=== PATIENT | female | born 1990 | race African-American/Black ===

== ENCOUNTER 2023-08-26 11:56 | Emergency (ER) | payer MEDICAID, SELFPAY ==
--- NOTE | ~2023-08-26 | CT_ITS ---
EXAMINATION: CT CHEST WITH CONTRAST CLINICAL INFORMATION: Large lump left upper back COMPARISON: None available. TECHNIQUE: Multidetector volumetric CT imaging of the chest was obtained after the administration of 65 mL of Omnipaque 350 intravenous contrast without immediate adverse reactions. Axial MIP volume rendering provided. Sagittal and coronal reformatted images were obtained. This CT examination was performed using dose optimization techniques as appropriate, variously including the following: *Automated exposure control *Adjustment of mA and/or kV according to patient size (this includes techniques or standardized protocols for targeted exams where dose is matched to indication/reason for exam; i.e. extremities or head) *Use of iterative reconstruction technique DLP: 2 7 mGy-cm FINDINGS: LUNGS: The lungs are clear with no evidence of inflammation or nodules. MEDIASTINUM: The mediastinum is normal. PLEURA: There is no pleural effusion. No pleural mass or thickening. AXILLA: No lymphadenopathy. UPPER ABDOMEN: Unremarkable OSSEOUS STRUCTURES: Unremarkable. There is a fatty soft tissue mass over the left upper back just deep to the skin. This measures 3 x 7 x 11 cm in length. Superior end of the mass is not fully included in the field. Several thin septations. No solid component or enhancement is seen. Appearance is suggestive of a lipoma. CT/CT chest w IV con IMPRESSION: Large lipoma in the left upper back. Superior margin not included in the [id number]. Multiple thin septations. No solid component or enhancement is seen. If this is painful or enlarging, surgical consultation would be recommended. Fleischner guidelines were followed.
--- NOTE | 2023-08-26 12:04 | ED.GENADULT ---
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 Patient reports that she notice an area of swelling in her upper back. She states this area has worsened and increased in size over the last several weeks. She denies any fevers or chills. Denies any chest pain or shortness of breath. She denies history of similar symptoms in the past. She denies any injury or known insect bites to the area. She denies any medical problems. No night sweats, profound weight gain or weight loss. Denies any abdominal pain, nausea, vomiting or diarrhea. No other complaints or concerns at this time. MD complaint: Back mass Onset (ago): month(s) Radiation: back Pain Consistency: constant Relieving factors: none Exacerbating factors: none Associated symptoms: denies other symptoms Treatments prior to arrival: none Related Data Previous Rx's Medication Instructions Recorded acetaminophen 500 mg tablet 500 mg PO Q4-6H PRN pain #30 tabs 08/26/23 (Tylenol Extra Strength) Allergies Allergy/AdvReac Type Severity Reaction Status Date / Time No Known Allergies Allergy Verified 08/26/23 12:05 Review of Systems Review of Systems: Yes all other systems are reviewed and are negative Constitutional: Constitutional: Reports as per [facility] [place] Past Medical History Attestation statement: The following information was validated with the patient. Social History Social History Advance Directives: No Physical Exam ED Vital Signs: Vital Signs - 24 hr 08/26/23 12:06 08/26/23 13:36 08/26/23 14:39 Temperature 98 F 97.7 F Pulse Rate 80 87 Respiratory Rate 19 20 Blood Pressure 124/82 121/82 122/80 Pulse Oximetry 98 Oxygen Delivery Method Room Air Room Air 08/26/23 18:16 Temperature 97.9 F Pulse Rate 86 Respiratory Rate 18 Blood Pressure 134/84 Pulse Oximetry 100 Oxygen Delivery Method Room Air BMI result Body Mass Index 24.9 Const General: cooperative, comfortable and no acute distress Orientation/consciousness: patient oriented x3 Limitations: no limitations [facility] Head: Yes normal to inspection, Yes normocephalic and Yes atraumatic Ears: hearing grossly normal bilaterally General nose exam: Normal external nose present Face and sinus: Yes normal facial exam Mouth: Normal oral and palatal mucosa present, oropharynx normal and moist mucous membranes Throat: Yes posterior oropharynx normal Eyes General: appearance normal, both eyes and all related structures Eyelids: Yes eyelids normal Conjunctivae: conjunctivae normal Sclerae: sclerae normal Pupils: Equal, round and reactive pupils present EOM: EOMs intact bilaterally Neck Neck: Yes normal visual inspection, Yes full ROM and Yes no lymphadenopathy Lymphatic: no lymphadenopathy noted Chest Chest palpation & inspection: normal inspection of the chest Resp Effort & Inspection: normal respiratory effort and able to speak in complete sentences Auscultation: clear to auscultation bilaterally, no crackles, no rales, no rhonchi and no wheezes Cardio Rate: regular rate Rhythm: regular rhythm Heart sounds: S1 normal heart sound present and S2 normal heart sound present GI Other: Abdomen is soft nontender. Inspection: Yes normal to inspection Skin Other: Left upper back with large, approximately 6 x 12 cm mass, with mild fluctuance, and induration. Nonmobile No surrounding erythema or warmth. General skin exam: no rashes or lesions noted Trauma: no lacerations or abrasions Wounds: no wounds Neuro General: patient oriented x3 and moves all extremities Cranial nerves: Yes Equal, round and reactive pupils present Extrem General: Yes normal to inspection Right upper extremity: normal to inspection Left upper extremity: normal to inspection Right lower extremity: normal to inspection Left lower extremity: normal to inspection Course Course Course Narrative: RME: 33-year-old female with no significant past medical history, Creole & Cuban speaking, complaining of worsening lump to left upper back over the past week. Reports 1 has been present for about 5 months, worsening over the past week with increasing pain. Reports clear drainage. States pain radiates to front Large ? Lipoma noted to left upper back. No erythema/warmth or crepitus Labs, chest CT ordered Full HPI, ROS and PE to be performed by primary ED provider. Reevaluation(s) Reevaluation #1: CT of the chest reveals a large lipoma ([id number]) in the left upper back. Multiple thin septations noted. Due to this enlarging and painful, surgical consult warranted. Discharge patient was surgical referral. Advised to call tomorrow for further evaluation. Patient understands and agrees with plan. Patient discharged on Tylenol and advised to return if any new or worsening symptoms occur. Patient understands and agrees with plan. Patient stable for discharge. Time: 18:39 Medications Administered Discontinued Medications Generic Name Dose Route Start Last Admin Trade Name Kristine PRN Reason Stop Dose Admin Iohexol 100 ml 08/26/23 17:30 08/26/23 17:31 Iohexol 350 Mg/Ml 100 Ml Infus..Btl IV 08/26/23 17:31 65 ml ONCE ONE Administration Medical Decision Making Medical Decision Making MDM Narrative: This is a 33-year-old female, with no known past medical history, presenting to the emergency department for evaluation of large upper back mass times multiple months. Patient reports that over last several months she has noticed increasing size and pain to this mass. No trauma or injury. On arrival, vital signs within normal limits. Patient has large mass measuring 6 x 12 cm, indurated, tender to palpation. Differential diagnoses include lipoma, malignancy, abscess, cellulitis. Given size, and tenderness, concerning for malignancy. Will obtain labs and CTA of the chest for further diagnostic imaging. Differential Diagnosis Differential Diagnoses: The differential diagnosis associated with the presentation includes See above Admission/Observation Consideration of admission/observation: Escalation of care including admission/observation considered Patient would have been admitted to the hospital had her work up had any findings where hospital admission was appropriate and her clinical presentation warranted hospital admission. Lab Data MDM Lab Attestation statement: I reviewed the patient's lab results. No leukocytosis, stable H&H, chemistry within normal limits. 08/26/23 13:46 08/26/23 13:46 Labs: Lab Results 08/26/23 Range/Units 13:46 WBC 5.2 (4.8-10.8) X10*3/uL RBC 4.30 (4.20-5.50) X10*6/uL Hgb 13.2 (12.0-16.0) g/dl Hct 40.5 (37.0-47.0) % MCV 94.2 (80.0-98.0) fL MCH 30.7 (27.0-33.0) pg MCHC 32.6 (31.0-35.0) g/dl RDW 13.6 (11.0-16.0) % Plt Count 151 L (160-400) X10*3/uL MPV 12.2 (9.4-12.3) fL Immature Gran % (Auto) 0.2 (0.0-0.4) % Neut % (Auto) 44.6 L (45-73) % Lymph % (Auto) 46.9 H (20-40) % Dane % (Auto) 7.1 (2-11) % Eos % (Auto) 0.8 (0-4) % Baso % (Auto) 0.4 (0-2) % Lymph # (Auto) 2.4 (1.2-4.9) X10*3/uL Dane # (Auto) 0.4 (0.1-1.2) X10*3/uL Eos # (Auto) 0.0 (0.0-0.4) X10*3/uL Baso # (Auto) 0.0 (0.0-0.2) X10*3/uL Abs Immat Gran (auto) 0.01 (0.00-0.03) X10*3/uL Absolute Neuts (auto) 2.3 (2.0-8.3) x10*3/uL Absolute Nucleated RBC 0.000 (0.0-0.012) X10*3/uL Nucleated RBC % (auto) 0.0 (0.0-0.2) /100WBC ESR 11 (0-20) MM/HR Sodium 138 (135-145) mmol/L Potassium 4.0 (3.3-5.1) mmol/L Chloride 107 (96-108) mmol/L Carbon Dioxide 24 (22-29) mmol/L Anion Gap 11 L (12-20) BUN 8 L (9-16) mg/dL Creatinine 0.60 (0.5-1.4) mg/dL Estim Creat Clear Calc 122.2 Estimated GFR > 60 Random Glucose 81 (60-115) mg/dL Calcium 9.3 (8.4-10.2) mg/dL C-Reactive Protein 0.18 (< or = 0.50) mg/dL Radiology Impression Discussion of test interpretation with radiology: I have reviewed the radiologist's reading. Radiologist Impression: FINDINGS: LUNGS: The lungs are clear with no evidence of inflammation or nodules. MEDIASTINUM: The mediastinum is normal. PLEURA: There is no pleural effusion. No pleural mass or thickening. AXILLA: No lymphadenopathy. UPPER ABDOMEN: Unremarkable OSSEOUS STRUCTURES: Unremarkable. There is a fatty soft tissue mass over the left upper back just deep to the skin. This measures 3 x 7 x 11 cm in length. Superior end of the mass is not fully included in the field. Several thin septations. No solid component or enhancement is seen. Appearance is suggestive of a lipoma. CT/CT chest w IV con IMPRESSION: Large lipoma in the left upper back. Superior margin not included in the [id number]. Multiple thin septations. No solid component or enhancement is seen. If this is painful or enlarging, surgical consultation would be recommended. Fleischner guidelines were followed. Dictated By: Nathalie Underwood MD Discharge Plan Discharge Clinical Impression: Lipoma Patient Disposition: Home, Self-Care Instructions: Lipoma (ED) Additional Instructions: Your imaging today shows a large lipoma. This is a benign tumor. Please call the surgeon tomorrow to have this removed. You may take Tylenol as needed for pain. If any new or worsening symptoms occur including but not limited to chest pain, shortness of breath, please return for re-evaluation. Las im?genes de hoy muestran un lipoma celeste. Carrie es un tumor xiomy. Llame al cirujano ma?west para que le extraigan esto. Puede casimiro Tylenol seg?n sea necesario para el dolor. Si se presenta alg?n s?ntoma nuevo o que empeora, incluidos, entre otros, dolor en el pecho y dificultad para respirar, regrese para julia nueva evaluaci?n. Prescriptions: New acetaminophen [Tylenol Extra Strength] 500 mg tablet 500 mg PO Q4-6H PRN (Reason: pain) Qty: 30 0RF Referrals: [facility] [place] General Surgeons [Provider Group]
[2023-08-26 12:06] VITALS: BP 124/82; PULSE 80; RESP 19; TEMP 36.6; O2SAT 98; BMI 24.9
[2023-08-26 13:36] VITALS: BP 121/82; PULSE 87; RESP 20; TEMP 36.5
[2023-08-26 13:53] LABS: MANUAL DIFF FLAG NO
[2023-08-26 13:57] LABS: Basophils Percent Auto 0.4 % (0-2); Eosinophils Percent Auto 0.8 % (0-4); Hematocrit 40.5 % (37.0-47.0); Hemoglobin 13.2 g/dl (12.0-16.0); Imm Gran Abs Auto 0.01 X10*3/uL (0.00-0.03); Imm Gran Pct Auto 0.2 % (0.0-0.4); Lymphocytes Absolute Auto 2.4 X10*3/uL (1.2-4.9); Lymphocytes Percent Auto 46.9 % (20-40); Mean Corpuscular HGB Conc 32.6 g/dl (31.0-35.0); Mean Corpuscular Hemoglobin 30.7 pg (27.0-33.0); Mean Corpuscular Volume 94.2 fL (80.0-98.0); Mean Platelet Volume 12.2 fL (9.4-12.3); Monocytes Absolute Auto 0.4 X10*3/uL (0.1-1.2); Monocytes Percent Auto 7.1 % (2-11); Neutrophils Absolute Auto 2.3 x10*3/uL (2.0-8.3); Neutrophils Percent Auto 44.6 % (45-73); Platelet Count 151 X10*3/uL (160-400); Red Cell Distribution Width 13.6 % (11.0-16.0); White Blood Count 5.2 X10*3/uL (4.8-10.8)
[2023-08-26 14:10] LABS: Anion Gap 11 (12-20); Blood Urea Nitrogen 8 mg/dL (9-16); C Reactive Protein 0.18 mg/dL (< or = 0.50); Calcium 9.3 mg/dL (8.4-10.2); Carbon Dioxide 24 mmol/L (22-29); Chloride 107 mmol/L (96-108); Creatinine Clr Calc Pharmacy 122.2; Estimated Glomerular Filt Rate > 60; Glucose Random 81 mg/dL (60-115); Sodium 138 mmol/L (135-145)
[2023-08-26 14:30] LABS: Erythrocyte Sedimentation Rate 11 MM/HR (0-20)
[2023-08-26 14:39] VITALS: BP 122/80
--- NOTE | 2023-08-26 15:18 | PC.NURSE ---
US line placement attempted by RN Gumaro- unable to obtain access. this nurse attempted access x2 also without success- ELSY Hadley aware
--- NOTE | 2023-08-26 15:56 | PC.NURSE ---
EJ access attempted by ELSY Hester with ELSY Hadley at bedside- EJ access not obtained. pt awaiting CT with con
--- NOTE | 2023-08-26 16:11 | PC.NURSE ---
ELSY Hathaway at bedside reattempting US IV placement
--- NOTE | 2023-08-26 16:21 | PC.NURSE ---
ELSY Hathaway successfully placed 20G in left bicep- pt to go for contrast study
[2023-08-26] MEDS: iohexoL 350 MG/ML 100 ML INFUS..BTL IV (17:31)
[2023-08-26 18:16] VITALS: BP 134/84; PULSE 86; RESP 18; TEMP 36.6; O2SAT 100
== END 2023-08-26 19:07 | disposition home or self-care (01) ==
PROVIDERS: Physician Assistant; Emergency Provider Emergency Medicine
DX: D17.1 Benign lipomatous neoplasm of skin and subcutaneous tissue of trunk (principal); M54.6 Pain in thoracic spine
CPT/HCPCS: 36415; 71260; 80048; 85025; 85652; 86140; 99283; 99284; Q9967

== ENCOUNTER 2023-08-29 12:36 | Outpatient (REF) | payer MEDICAID, SELFPAY ==
[2023-08-29 14:44] LABS: MANUAL DIFF FLAG NO
[2023-08-29 14:47] LABS: Basophils Percent Auto 0.3 % (0-2); Hematocrit 40.1 % (37.0-47.0); Hemoglobin 13.1 g/dl (12.0-16.0); Lymphocytes Absolute Auto 2.1 X10*3/uL (1.2-4.9); Lymphocytes Percent Auto 51.8 % (20-40); Mean Corpuscular HGB Conc 32.7 g/dl (31.0-35.0); Mean Corpuscular Hemoglobin 30.5 pg (27.0-33.0); Mean Corpuscular Volume 93.5 fL (80.0-98.0); Mean Platelet Volume 12.5 fL (9.4-12.3); Monocytes Absolute Auto 0.3 X10*3/uL (0.1-1.2); Monocytes Percent Auto 6.8 % (2-11); Neutrophils Absolute Auto 1.6 x10*3/uL (2.0-8.3); Neutrophils Percent Auto 40.1 % (45-73); Platelet Count 157 X10*3/uL (160-400); Red Blood Count 4.29 X10*6/uL (4.20-5.50); Red Cell Distribution Width 13.3 % (11.0-16.0)
[2023-08-29 15:07] LABS: Prothrombin Time 12.1 SEC (11.1-13.3)
[2023-08-29 15:36] LABS: Alanine Aminotransferase 10 U/L (0-31); Albumin Level 4.3 g/dL (3.5-5.0); Alkaline Phosphatase 56 U/L (39-117); Anion Gap 10 (12-20); Aspartate Amino Transferase 15 U/L (5-31); Bilirubin Direct < 0.2 mg/dL (0.0-0.5); Bilirubin Total 0.2 mg/dL (0.0-1.0); Blood Urea Nitrogen 10 mg/dL (9-16); Calcium 9.6 mg/dL (8.4-10.2); Carbon Dioxide 26 mmol/L (22-29); Chloride 104 mmol/L (96-108); Estimated Glomerular Filt Rate > 60; Glucose Random 87 mg/dL (60-115); Sodium 136 mmol/L (135-145); Total Protein 7.7 g/dL (6.5-8.0)
[2023-09-01 05:35] LABS: HBS Num1 0.17 mIU/mL (0-7.99); HBc Num1 0.07 S/CO (0.00-0.79); Hepatitis A Antibody IgM 0.28 Index (0-0.79); Hepatitis B Core Antibody Nonreactive (Nonreactive); Hepatitis B Surface Antigen Negative (Negative); ~HepC Num1 0.08 S/CO (0.00-0.79); ~Hepatitis A Antibody IgM Nonreactive (Nonreactive); ~Hepatitis B Surface Antibody NONREACTIVE (Nonreactive); ~Hepatitis C Antibody Nonreactive (Nonreactive)
[2023-09-02 17:19] LABS: HIV RNA PCR Qn Copies Not Detected Copies/mL; HIV RNA PCR Qn Log Copies Not Detected Log cps/mL
== END 2023-08-29 12:37 | disposition home or self-care (01) ==
LOC: HO.CHCLDS 12:36
PROVIDERS: Visit Provider Pediatrics
DX: Z01.818 Encounter for other preprocedural examination (principal); Z11.4 Encounter for screening for human immunodeficiency virus [HIV]
CPT/HCPCS: 36415; 80048; 80076; 85025; 85610; 86704; 86706; 86709; 86803; 87340; 87536; 87900

== ENCOUNTER 2023-09-02 13:26 | Outpatient (AMB) | payer MEDICAID, SELFPAY ==
[2023-09-02 13:32] VITALS: BP 122/79; PULSE 78; BMI 25.3
--- NOTE | 2023-09-02 13:32 | A.OFFVIS_ITS ---
Intake Vital Signs 09/02/23 13:32 Height 5 ft 5 in Weight 152 lb BMI 25.3 BP 122/79 Blood Pressure Location Rt brachial Position Sitting Pulse 78 Intake Visit Reasons: Lipoma on back Intake Note: Patient referred for lipoma on back. Noticed it 3m ago. Painful when laying on it. Denies bleeding. Surgical Clinical Reviewer Required: No Accompanied by: Spouse Allergies No Known Allergies Allergy (Verified 09/02/23 13:37) HPI HPI Comments History of Present Illness Details Patient presents with her significant other for evaluation of a massive left upper back mass. She has had this indeterminate time. It Has become quite large and symptomatic. She wishes to have it removed. She has no such lesions elsewhere. Chart was reviewed patient evaluated [facility] Social History (Updated 09/02/23 @ 13:37 by AMADA Irby) Alcohol intake: never Patient Tobacco Use Status: Never used Tobacco Physical Exam Vital Signs: Last Vital Signs Pulse 78 09/02/23 13:32 BP 122/79 09/02/23 13:32 BMI result Body Mass Index 25.3 Chest Other: Chest breath sounds bilaterally, HS 1 in 2 GI Other: Abdomen soft, benign Back/Spine/Pelvis Other: Left upper back demonstrates a massive lipoma measuring approximately 8 x 6 cm. Assessment & Plan Assessment & Plan (1) Lipoma of back: Code(s): D17.1 - Benign lipomatous neoplasm of skin and subcutaneous tissue of trunk Plan Risks, benefits, alternatives were reviewed with the patient and her significant other regarding excision of this massive left upper back lipoma which included but not limited to bleeding, infection, recurrence, numbness, pain, scarring, wound dehiscence, seroma formation and she wishes to proceed. All questions were answered. Arrangements were made for this. Coding Level of Care Code New Pt Level 5 (88618) Diagnoses Lipoma of back D17.1
== END 2023-09-02 14:01 | disposition home or self-care (01) ==
PROVIDERS: Referring Provider Emergency Medicine; Visit Provider Surgery
DX: D17.1 Benign lipomatous neoplasm of skin and subcutaneous tissue of trunk (principal)
CPT/HCPCS: 99204

== ENCOUNTER → 2023-09-02 13:26 | Outpatient (BNVA) | payer MEDICAID, SELFPAY | PROVIDERS: Referring Provider Emergency Medicine; Visit Provider Surgery | DX: D17.1 Benign lipomatous neoplasm of skin and subcutaneous tissue of trunk (principal) | CPT/HCPCS: 99202 ==

== ENCOUNTER 2023-09-26 06:08 | Day surgery (SDC) | payer MEDICAID, SELFPAY ==
[2023-09-24 15:29] VITALS: BMI 25.3
[2023-09-26 06:31] VITALS: BP 125/81; PULSE 79; RESP 16; TEMP 36.7; O2SAT 99
[2023-09-26 06:42] LABS: UPreg QC Valid YES; Urine Pregnancy NEGATIVE (NEGATIVE)
--- NOTE | 2023-09-26 08:08 | MHC.SHP ---
Pre-Procedural Eval Section A Date of Service: 09/26/23 The patient is an INPATIENT: No Changes since office visit: No Cold of Flu in the past 2 weeks, No New Medical Problems, No Changes in Medication and No Patient answered all questions The History & Physical has been completed within 30 days and I have reviewed it.: Yes Section B Chief Complaint: Benign lipomatous neoplasm of skin and subcutaneou Allergies: Allergies Allergy/AdvReac Type Severity Reaction Status Date / Time No Known Allergies Allergy Verified 09/02/23 13:37 Plan I have reviewed the history and physical and performed a pertinent physical examination on my patient. No changes have occurred unless specified. Time Spent With Patient Time: Total time managing care of this patient today ____ minutes.
--- NOTE | 2023-09-26 08:23 | HO.ANESPROP2 ---
HPI - Anesthesia Eval Consult details Narrative: 33 yo F presenting for lipoma excision. PMFSH Active Problems Active Problems: All Active Problems (Updated 09/24/23 @ 15:30 by Catrachita Lindsay RN) Lipoma of back (Acute) Past Medical History Medical History (Updated 09/24/23 @ 15:29 by Catrachita Lindsay RN) Lipoma of back Family History Family history of problems with anesthesia: No Surgical History Surgical History (Updated 09/24/23 @ 15:30 by Catrachita Lindsay RN) Surgical history unknown Social History Social History (Updated 09/02/23 @ 13:37 by AMADA Irby) Alcohol intake: never Patient Tobacco Use Status: Never used Tobacco Second Hand Smoke Exposure: No Use of substances other than those prescribed or required for medical reasons: No Are you DNR?: No Advance Directives: No Advance Directives Information Provided: Yes Advance Directives on File: No Meds Allergies Allergy/AdvReac Type Severity Reaction Status Date / Time No Known Allergies Allergy Verified 09/02/23 13:37 Active Medications: Current Medications Cefazolin Sodium/Dextrose (Ancef) 2 gm in 50 mls @ 100 mls/hr IV PREOP ONE Stop: 09/26/23 08:36 Exam Exam Date and Time: September 26, 2023 Height,Weight and Vital Signs: Height 5 ft 5 in Weight 68.946 kg Last Vital Signs Temp 98.1 F 09/26/23 06:31 Pulse 79 09/26/23 06:31 Resp 16 09/26/23 06:31 BP 125/81 09/26/23 06:31 Pulse Ox 99 09/26/23 06:31 O2 Del Method Room Air 09/26/23 06:31 Pertinent Lab Results Pertinent Lab Results: Laboratory Tests 09/26/23 06:30 Urine Test NEGATIVE Airway Mallampati Class: I TM Dist: >3cm Neck ROM: Full Loose/Missing/Broken Teeth: No Heart: S1S2 Lungs: CTAB Assessment and Plan Assessment Anesthesia Assessment: Anesthesia Plan Discussed and Chart Reviewed Final Anesthetic Review Family History of Problems with Anesthesia: No NPO: Yes ASA Class: I Final Preanesthetic Review: No Changes in Pt Med Stat, Meds/Allgs Chart Reviewed, Consent Obtained/Reviewed and Anes Risks/Benef Reviewed Patient Risk: Low Procedure Risk: Low Anesthetic Plan Anesthetic Plan: MAC: and Agree w/ Assess. and Plan Disposition: Standard PACU
[2023-09-26 09:27] VITALS: BP 91/47; PULSE 89; RESP 16; TEMP 36.3; O2SAT 99
--- NOTE | 2023-09-26 09:35 | W.PM.OPN ---
Operative Note Operative Note Date of Service: 09/26/23 Narrative: Preoperative diagnosis: [] Massive/giant left upper back lipoma Postop diagnosis: [] Same Procedure [] wide local excision giant left upper back lipoma Surgeon: [] Juan Insole Tape Stitcher Uco: [] Estevan Type of Anesthesia: [] MAC Indication for surgery: [] Final specimen measured approximately 12 x 8 cm consistent with a massive lipoma which was intimately adhered to the underlying back muscle fascia. Findings: [] Patient brought to the operating room, placed on table supine position, after adequate level of MAC anesthesia was induced, patient was placed in the semi right lateral position. Left upper back was prepped and draped in usual sterile fashion. Patient underwent 1% lidocaine/0.5% Marcaine infiltration and a transverse incision was made over the mass in question carried down through skin, subcutaneous tissue, where a massive left upper back lipoma was identified and circumferentially dissected out using Bovie. Mass had to be dissected off the underlying back muscle fascia. Specimen was sent to pathology with dimensions as described above. Wound was irrigated, secured hemostasis, closed the following manner; interrupted inverted dermal 3-0 Vicryl sutures followed by running subcuticular 4-0 Vicryl sutures were placed. Steri-Strips and sterile dressings were applied. Sponge, needle, instrument counts reported correct. Patient tolerated the procedure well and emerged anesthesia stable condition. EBL minimal
[2023-09-26 09:42] VITALS: BP 91/41; PULSE 84; RESP 17; O2SAT 100
[2023-09-26 09:58] VITALS: BP 100/67; PULSE 77; RESP 16; TEMP 36.3; O2SAT 100
== END 2023-09-26 11:00 | disposition home or self-care (01) ==
PROVIDERS: PCP Pediatrics; Visit Provider Surgery
PROC: (CPT 21933; principal; 2023-09-26 08:40)
DX: D17.1 Benign lipomatous neoplasm of skin and subcutaneous tissue of trunk (principal)
CPT/HCPCS: 21933; 81025; 88304; J0131; J0690; J1885; J2250; J2704; J2795; J3010

== ENCOUNTER → 2023-09-26 06:08 | Outpatient (BNV) | payer MEDICAID, SELFPAY | PROVIDERS: PCP Pediatrics; Visit Provider Surgery | DX: D17.1 Benign lipomatous neoplasm of skin and subcutaneous tissue of trunk (principal) | CPT/HCPCS: 21933 ==

== ENCOUNTER 2023-09-30 11:08 | Outpatient (AMB) | payer MEDICAID, SELFPAY ==
--- NOTE | 2023-09-30 11:09 | A.OFFVIS_ITS ---
Intake Vital Signs 09/30/23 11:10 Height 5 ft 5 in Weight 153 lb BMI 25.5 BP 130/84 Blood Pressure Location Rt brachial Position Sitting Pulse 80 Intake Visit Reasons: wound check, pain s/p exc lipoma Intake Note: This patient presents for an assessment for wound check for pain and bleeding status post excision of lipoma. Patient c/o; reports pain and bleeding from surgical site, reports unable to do normal activities due to pain. Cutting Table Operator Required: Yes Cutting Table Operator Language: Operator Electronic Warfare Name: StarrOliver Information Interpreted: non-clinical & clinical Accompanied by: Spouse Allergies No Known Allergies Allergy (Verified 09/30/23 11:16) HPI HPI Comments History of Present Illness Details Patient presents with family member. She is having moderate incisional discomfort. Pathology was benign Her dressing was never removed after 2 days of surgery. [facility] Medical History (Updated 09/24/23 @ 15:29 by Catrachita Lindsay RN) Lipoma of back Surgical History Status post excision of lipoma Surgical history unknown Social History Alcohol intake: never Comment: counts correct Patient Tobacco Use Status: Never used Tobacco Second Hand Smoke Exposure: No Physical Exam Vital Signs: Last Vital Signs Pulse 80 09/30/23 11:10 BP 130/84 09/30/23 11:10 BMI result Body Mass Index 25.5 Neck Other: Dressing was removed along with Steri-Strips patient has moderate tape burn along the upper lower part of the incision but no evidence of any infection. Incision itself is healing uneventfully. Patient has a modest seroma/hematoma. This was aspirated and because of clot a, only 5 cc was retrieved. Dressing applied. Assessment & Plan Assessment & Plan (1) Lipoma of back: Code(s): D17.1 - Benign lipomatous neoplasm of skin and subcutaneous tissue of trunk Plan Patient and her accompanying person were given local instructions, analgesics renewal, which include bacitracin each day to the tape burn area, after showering with dressing, and patient will see me as directed or p.r.n.. Medications: New hydrocodone-acetaminophen 5-325 mg Partial Fill upon patient request. 1 tab PO Q4-6H PRN 30 tabs 0RF pain Coding Level of Care Code Global (91883) Diagnoses Lipoma of back D17.1
[2023-09-30 11:10] VITALS: BP 130/84; PULSE 80; BMI 25.5
== END 2023-09-30 11:40 | disposition home or self-care (01) ==
PROVIDERS: PCP Pediatrics; Visit Provider Surgery
DX: D17.1 Benign lipomatous neoplasm of skin and subcutaneous tissue of trunk (principal)
CPT/HCPCS: 99024

== ENCOUNTER → 2023-09-30 11:08 | Outpatient (BNVA) | payer MEDICAID, SELFPAY | PROVIDERS: PCP Pediatrics; Visit Provider Surgery | DX: D17.1 Benign lipomatous neoplasm of skin and subcutaneous tissue of trunk (principal) | CPT/HCPCS: 99212 ==

== ENCOUNTER 2023-10-06 12:13 | Outpatient (AMB) | payer MEDICAID, SELFPAY ==
[2023-10-06 12:32] VITALS: BMI 25.5
--- NOTE | 2023-10-06 12:32 | MHC.OFFVIS ---
Intake Vital Signs 10/06/23 12:32 Height 5 ft 5 in Weight 153 lb 0.013 oz BMI 25.5 Intake Visit Reasons: S/P WLE Lg. Lt. upper back lipoma Intake Note: This patient presents for a post-op follow-up assessment status post WLE upper back lipoma. Pt c/o; admits to pain and area is swollen Kosher Dietary Service Manager Required: Yes Kosher Dietary Service Manager Language: Drilling Foreman Name: Roshni YBARRA Information Interpreted: non-clinical & clinical Viticulture Teacher: Viticulture Teacher Present Accompanied by: Family/Other Allergies No Known Allergies Allergy (Verified 10/06/23 12:34) HPI HPI Comments History of Present Illness Details Patient presents for follow-up. She is still having moderate incisional discomfort. She presents here with her significant other. [facility] Medical History (Updated 09/24/23 @ 15:29 by Catrachita Lindsay RN) Lipoma of back Surgical History Status post excision of lipoma (~09/26/23) Surgical history unknown Social History Alcohol intake: never Comment: counts correct Patient Tobacco Use Status: Never used Tobacco Second Hand Smoke Exposure: No Physical Exam Vital Signs: BMI result Body Mass Index 25.5 Neck Other: Posterior neck wound demonstrates the incision to be clean dry and intact. Patient has a moderately sized hematoma similar to last visit. Under sterile technique this was aspirated and again because of thick this, minimal output was retrieved. Dressing applied. Assessment & Plan Assessment & Plan (1) Lipoma of back: Code(s): D17.1 - Benign lipomatous neoplasm of skin and subcutaneous tissue of trunk Plan Patient has significant other have been given local instructions including warm compresses to the area, they request analgesics, and she will see me as directed or p.r.n.. Press to the next visit, if the hematoma has liquified, I can again try to aspirate this Coding Level of Care Code Global (17718) Diagnoses Lipoma of back D17.1
== END 2023-10-06 12:35 | disposition home or self-care (01) ==
PROVIDERS: PCP Pediatrics; Visit Provider Surgery
DX: D17.1 Benign lipomatous neoplasm of skin and subcutaneous tissue of trunk (principal)
CPT/HCPCS: 99024

== ENCOUNTER → 2023-10-06 12:13 | Outpatient (BNVA) | payer MEDICAID, SELFPAY | PROVIDERS: PCP Pediatrics; Visit Provider Surgery | DX: D17.1 Benign lipomatous neoplasm of skin and subcutaneous tissue of trunk (principal) | CPT/HCPCS: 99212 ==

== ENCOUNTER 2023-10-13 13:21 | Outpatient (AMB) | payer MEDICAID, SELFPAY ==
[2023-10-13 13:27] VITALS: BP 117/74; PULSE 105; BMI 25.3
--- NOTE | 2023-10-13 13:27 | MHC.OFFVIS ---
Intake Vital Signs 10/13/23 13:27 Height 5 ft 5 in Weight 152 lb BMI 25.3 BP 117/74 Blood Pressure Location Rt brachial Position Sitting Pulse 105 H Intake Visit Reasons: one week S/P WLE Lg. Lt. upper back lipoma Intake Note: Patient here for 1wk p/o Lipoma exc on Lt upper back. Patient c/o: redness and pain. Taking rx pain meds every 6 hours. 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 She has had marked improvement of her incisional discomfort. [facility] Medical History Lipoma of back Surgical History Status post excision of lipoma (~09/26/23) Surgical history unknown Social History Alcohol intake: never Comment: counts correct Patient Tobacco Use Status: Never used Tobacco Second Hand Smoke Exposure: No Physical Exam Vital Signs: Last Vital Signs Pulse 105 H 10/13/23 13:27 BP 117/74 10/13/23 13:27 BMI result Body Mass Index 25.3 Neck Other: Lipoma wound clean dry and intact healing uneventfully. Still a persistent seroma/hematoma. Under sterile technique attempted aspiration only yielded 5 cc secondary to the process still been coagulated. Assessment & Plan Assessment & Plan (1) Lipoma of back: Code(s): D17.1 - Benign lipomatous neoplasm of skin and subcutaneous tissue of trunk Plan Patient has been given local instructions. Should this process per cysto next 2-3 weeks, the hematoma may have liquified and she is to call the office for re-attempt thing aspiration. Otherwise she will follow-up p.r.n.. All questions answered Coding Level of Care Code Global (68293) Diagnoses Lipoma of back D17.1
== END 2023-10-13 13:37 | disposition home or self-care (01) ==
PROVIDERS: PCP Pediatrics; Visit Provider Surgery
DX: D17.1 Benign lipomatous neoplasm of skin and subcutaneous tissue of trunk (principal)
CPT/HCPCS: 99024

== ENCOUNTER → 2023-10-13 13:21 | Outpatient (BNVA) | payer MEDICAID, SELFPAY | PROVIDERS: PCP Pediatrics; Visit Provider Surgery | DX: Z48.817 Encounter for surgical aftercare following surgery on the skin and subcutaneous tissue (principal); Z98.890 Other specified postprocedural states | CPT/HCPCS: 99212 ==

== ENCOUNTER 2023-11-04 11:37 | Outpatient (AMB) | payer MEDICAID, SELFPAY ==
[2023-11-04 11:41] VITALS: BP 133/84; PULSE 106; BMI 25.3
--- NOTE | 2023-11-04 11:41 | A.OFFVIS_ITS ---
Intake Vital Signs 11/04/23 11:41 Height 5 ft 5 in Weight 152 lb BMI 25.3 BP 133/84 Blood Pressure Location Rt brachial Position Sitting Pulse 106 H Intake Visit Reasons: Lipoma of back Intake Note: Patient here s/p exc of lipoma on upper back. Patient reports incision healing well. Denies oozing. 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 Aside from some incisional itchiness, she has no wound issues or complaints. [facility] Medical History Lipoma of back Surgical History Status post excision of lipoma (~09/26/23) Surgical history unknown Social History Alcohol intake: never Comment: counts correct Patient Tobacco Use Status: Never used Tobacco Second Hand Smoke Exposure: No Physical Exam Vital Signs: Last Vital Signs Pulse 106 H 11/04/23 11:41 BP 133/84 11/04/23 11:41 BMI result Body Mass Index 25.3 Back/Spine/Pelvis Other: Upper back incision is clean dry and intact and healing uneventfully. Assessment & Plan Assessment & Plan (1) Lipoma of back: Code(s): D17.1 - Benign lipomatous neoplasm of skin and subcutaneous tissue of trunk Plan Patient has been given local instructions, a note for work including 2 weeks light duty, and will follow-up p.r.n.. All Questions answered. Coding Level of Care Code Global (57492) Diagnoses Lipoma of back D17.1
== END 2023-11-04 11:50 | disposition home or self-care (01) ==
PROVIDERS: PCP Pediatrics; Visit Provider Surgery
DX: D17.1 Benign lipomatous neoplasm of skin and subcutaneous tissue of trunk (principal)
CPT/HCPCS: 99024

== ENCOUNTER → 2023-11-04 11:37 | Outpatient (BNVA) | payer MEDICAID, SELFPAY | PROVIDERS: PCP Pediatrics; Visit Provider Surgery | DX: D17.1 Benign lipomatous neoplasm of skin and subcutaneous tissue of trunk (principal) | CPT/HCPCS: 99212 ==

== ENCOUNTER 2024-01-02 12:07 | Emergency (ER) | payer MEDICAID, SELFPAY ==
[2024-01-02 12:32] VITALS: BP 115/79; PULSE 74; RESP 18; TEMP 36.8; O2SAT 99; BMI 26.6
--- NOTE | 2024-01-02 12:32 | ED.GENADULT ---
HPI - General Adult General Chief complaint: Vaginal Bleeding Stated complaint: Vaginal bleeding, abd pain, dizziness Source: patient Mode of arrival: ambulatory Limitations: no limitations History of Present Illness HPI narrative: Patient is a 33 year old assigned female at with no reported medical history presenting to the emergency department today with vaginal bleeding. Patient states that she has been consistently bleeding vaginally. Patient states in total she is going through 5-6 pads a day. Patient denies any dizziness, lightheadedness, abdominal pain, nausea, vomiting, fever, chills, blurry vision, double vision, loss of vision, chest pain, difficulty breathing, shortness of breath, back pain, night sweats, pain with urination, increased urinary frequency, increased urinary urgency, blood in her stool, syncope or a near syncopal episode, recent trauma or falls, bowel incontinence, bladder incontinence, bowel retention, bladder retention, or any other complaints at this time. Onset (ago): week(s) (4) Severity: mild Relieving factors: none Exacerbating factors: none Associated symptoms: denies other symptoms Treatments prior to arrival: none Related Data Previous Rx's Medication Instructions Recorded acetaminophen 500 mg tablet 500 mg PO Q4-6H PRN pain #30 tabs 08/26/23 (Tylenol Extra Strength) ibuprofen 800 mg tablet 800 mg PO Q8H PRN pain #30 tabs 09/02/23 Allergies Allergy/AdvReac Type Severity Reaction Status Date / Time No Known Allergies Allergy Verified 11/04/23 11:42 Review of Systems Constitutional: Constitutional: Reports no additional constitutional complaints, Denies chills, Denies fever(s) and Denies night sweats Eyes: Eyes: Reports no additional eye complaints, Denies blurry vision, Denies change in vision, Denies diplopia, Denies eye discharge, Denies loss of vision and Denies eye pain ENT: Denies dizziness Cardiovascular: Cardiovascular: Reports no additional cardiovascular complaints, Denies chest pain, Denies lightheadedness, Denies Loss of Consciousness and Denies dyspnea Respiratory: Respiratory: Reports no additional respiratory complaints and Denies dyspnea Gastrointestinal: Gastrointestinal: Reports no additional gastrointestinal complaints, Denies abdominal pain, Denies melena, Denies hematochezia, Denies change in bowel habits and Denies change in stool character Genitourinary: Genitourinary: Denies hematuria, Denies urinary frequency, Denies dysuria, Denies urinary incontinence, Denies urinary hesitancy and Denies urinary urgency Comments: vaginal bleeding Musculoskeletal: Musculoskeletal: Reports no additional musculoskeletal complaints, Denies numbness and Denies tingling Neurologic: Denies dizziness, Denies loss of vision, Denies numbness and Denies tingling Psychiatric: Psychiatric: Reports no additional psychiatric complaints Endocrine: Endocrine: Reports no additional endocrine complaints Hematologic/Lymphatic: Hematologic/Lymphatic: Reports no additional hematologic/lymphatic complaints Allergic/Immunologic: Allergic/Immunologic: Reports no additional allergic/immunologic complaints PMFSH Past Medical History Attestation statement: The following information was validated with the patient. Source: old records reviewed and nursing notes reviewed Medical History Lipoma of back Surgical History Status post excision of lipoma (~09/26/23) Surgical history unknown Social History Social History Alcohol intake: never Comment: counts correct Patient Tobacco Use Status: Never used Tobacco Second Hand Smoke Exposure: No Advance Directives: No Advance Directives Information Provided: No Physical Exam ED Vital Signs: BMI result Body Mass Index 26.6 Const General: cooperative, no acute distress, alert and awake Nutritional Appearance: well nourished Orientation/consciousness: patient oriented x3 Limitations: no limitations HENMT Head: Yes normal to inspection and Yes atraumatic Ears: hearing grossly normal bilaterally and external ears normal General nose exam: Normal external nose present, no nasal discharge noted and no epistaxis Face and sinus: Yes normal facial exam, No abrasion and No laceration Mouth: Normal oral and palatal mucosa present, no drooling and no muffled voice Eyes General: appearance normal, both eyes and all related structures Periorbital: periorbital findings normal Eyelids: Yes eyelids normal Conjunctivae: conjunctivae normal Pupils: Equal, round and reactive pupils present EOM: EOMs intact bilaterally Neck Neck: Yes normal visual inspection, Yes full ROM and Yes no lymphadenopathy Chest Chest palpation & inspection: normal inspection of the chest Resp Effort & Inspection: normal respiratory effort and able to speak in complete sentences GI Inspection: Yes normal to inspection Neuro General: patient oriented x3 and moves all extremities Cranial nerves: Yes Equal, round and reactive pupils present Cognition (Neuro): normal cognition Motor exam (neuro): 5/5 motor strength present throughout Sensory Exam: Normal double simultaneous stimulation for sensation Coordination: [id number] test normal Extrem General: Yes normal to inspection, Yes full ROM and Yes capillary refill normal Psych Appearance: grossly normal Mental Status: mental status grossly normal Affect: normal affect Attitude: cooperative Thought process: Normal thought process present Thought content: Normal thought content present Insight: Good insight present (Psych) Course Course Course Narrative: RME performed by Danii Hyde PA-C. Patient is a 33 year old assigned female at presenting to the emergency department with vaginal bleeding. Patient states that she is going through 5-6 pads per day. Detailed physical exam and review of systems are deferred to the scientific systems analyst. Labs ordered. Patient placed back in the waiting room pending room availability and results. Medical Decision Making Medical Decision Making [facility] Narrative: Patient is a 33 year old assigned female at with no reported medical history presenting to the emergency department today with vaginal bleeding. Patient's limited physical exam performed in triage was unremarkable. Patient's blood work was unremarkable. Patient's urine showed no acute process. Patient left the department without completing treatment. Patient left the department before myself or any of the other clinicians in the ED could review physical exam findings, test results, need or lack there of for additional testing, treatment options, or a treatment plan. Differential Diagnosis Differential Diagnoses: The differential diagnosis associated with the presentation includes Vaginal bleeding Admission/Observation Consideration of admission/observation: Escalation of care including admission/observation considered Patient would have been admitted to the hospital had her work up had any findings where hospital admission was appropriate, her clinical presentation warranted hospital admission, and she hadn't left without completing treatment. Lab Data [facility] Lab Attestation statement: I reviewed the patient's lab results. My interpretation of these results are in the [facility] Rationale portion of this note. 01/02/24 12:48 01/02/24 12:48 Labs: Lab Results 01/02/24 01/02/24 Range/Units 12:48 16:42 WBC 4.9 (4.8-10.8) X10*3/uL RBC 4.24 (4.20-5.50) X10*6/uL Hgb 12.5 (12.0-16.0) g/dl Hct 38.0 (37.0-47.0) % MCV 89.6 (80.0-98.0) fL MCH 29.5 (27.0-33.0) pg MCHC 32.9 (31.0-35.0) g/dl RDW 14.1 (11.0-16.0) % Plt Count 169 (160-400) X10*3/uL MPV 11.5 (9.4-12.3) fL Immature Gran % (Auto) 0.2 (0.0-0.4) % Neut % (Auto) 53.8 (45-73) % Lymph % (Auto) 38.7 (20-40) % [place] % (Auto) 6.1 (2-11) % Eos % (Auto) 0.8 (0-4) % Baso % (Auto) 0.4 (0-2) % Lymph # (Auto) 1.9 (1.2-4.9) X10*3/uL [place] # (Auto) 0.3 (0.1-1.2) X10*3/uL Eos # (Auto) 0.0 (0.0-0.4) X10*3/uL Baso # (Auto) 0.0 (0.0-0.2) X10*3/uL Abs Immat Gran (auto) 0.01 (0.00-0.03) X10*3/uL Absolute Neuts (auto) 2.6 (2.0-8.3) x10*3/uL Absolute Nucleated RBC 0.000 (0.0-0.012) X10*3/uL Nucleated RBC % (auto) 0.0 (0.0-0.2) /100WBC Sodium 139 (135-145) mmol/L Potassium 3.9 (3.3-5.1) mmol/L Chloride 110 H (96-108) mmol/L Carbon Dioxide 24 (22-29) mmol/L Anion Gap 9 L (12-20) BUN 9 (9-16) mg/dL Creatinine 0.76 (0.5-1.4) mg/dL Estim Creat Clear Calc 104.6 Estimated GFR > 60 Random Glucose 87 (60-115) mg/dL Calcium 9.2 (8.4-10.2) mg/dL Magnesium 2.0 (1.6-2.6) mg/dL Total Bilirubin 0.2 (0.0-1.0) mg/dL AST 15 (5-31) U/L ALT 12 (0-31) U/L Alkaline Phosphatase 67 (39-117) U/L Total Protein 7.2 (6.5-8.0) g/dL Albumin 4.1 (3.5-5.0) g/dL Beta HCG, Quant < 2 mIU/mL Urine Color Red A Urine Appearance Cloudy Urine pH 6.0 (5.0-9.0) Ur Specific [place] 1.020 (1.005-1.025) Urine Protein 30 (1+) H (Neg-Trace) mg/dL Urine Glucose (UA) Negative (Negative) mg/dL Urine Ketones Negative (Negative) mg/dL Urine Blood Large (3+) H (Negative) Urine Nitrite Negative (Negative) Ur Leukocyte Esterase Trace H (Negative) Urine RBC >20 H (0-2) /HPF Urine WBC 0-5 (0-5) /HPF Ur Squamous Epith Cells 6-10 (0-2) /HPF Urine Bacteria 2+ (None Seen) Hyaline Casts 0-2 (0-2) /LPF Discharge Plan Discharge Clinical Impression: Vaginal bleeding Patient Disposition: Left W/O Completing Treatment Prescriptions: No Action acetaminophen [Tylenol Extra Strength] 500 mg tablet 500 mg PO Q4-6H PRN (Reason: pain) Qty: 30 0RF ibuprofen 800 mg tablet 800 mg PO Q8H PRN (Reason: pain) Qty: 30 0RF Discharge Date/Time: 01/02/24 20:21
[2024-01-02 12:52] LABS: MANUAL DIFF FLAG NO
[2024-01-02 12:53] LABS: Basophils Percent Auto 0.4 % (0-2); Eosinophils Percent Auto 0.8 % (0-4); Hemoglobin 12.5 g/dl (12.0-16.0); Imm Gran Abs Auto 0.01 X10*3/uL (0.00-0.03); Imm Gran Pct Auto 0.2 % (0.0-0.4); Lymphocytes Absolute Auto 1.9 X10*3/uL (1.2-4.9); Lymphocytes Percent Auto 38.7 % (20-40); Mean Corpuscular HGB Conc 32.9 g/dl (31.0-35.0); Mean Corpuscular Hemoglobin 29.5 pg (27.0-33.0); Mean Corpuscular Volume 89.6 fL (80.0-98.0); Mean Platelet Volume 11.5 fL (9.4-12.3); Monocytes Absolute Auto 0.3 X10*3/uL (0.1-1.2); Monocytes Percent Auto 6.1 % (2-11); Neutrophils Absolute Auto 2.6 x10*3/uL (2.0-8.3); Neutrophils Percent Auto 53.8 % (45-73); Platelet Count 169 X10*3/uL (160-400); Red Blood Count 4.24 X10*6/uL (4.20-5.50); Red Cell Distribution Width 14.1 % (11.0-16.0); White Blood Count 4.9 X10*3/uL (4.8-10.8)
[2024-01-02 13:15] LABS: Alanine Aminotransferase 12 U/L (0-31); Albumin Level 4.1 g/dL (3.5-5.0); Alkaline Phosphatase 67 U/L (39-117); Anion Gap 9 (12-20); Aspartate Amino Transferase 15 U/L (5-31); Bilirubin Total 0.2 mg/dL (0.0-1.0); Blood Urea Nitrogen 9 mg/dL (9-16); Calcium 9.2 mg/dL (8.4-10.2); Carbon Dioxide 24 mmol/L (22-29); Chloride 110 mmol/L (96-108); Creatinine Clr Calc Pharmacy 104.6; Estimated Glomerular Filt Rate > 60; Glucose Random 87 mg/dL (60-115); HCG Quantitative < 2 mIU/mL; Potassium 3.9 mmol/L (3.3-5.1); Sodium 139 mmol/L (135-145); Total Protein 7.2 g/dL (6.5-8.0)
[2024-01-02 16:52] LABS: Appearance Urine Cloudy; Color Urine Red; Glucose Urine UA Negative (Negative); Leukocyte Esterase Urine Trace (Negative); Nitrite Urine Negative (Negative); UMIC TRIGGER UACC YES; Urine Blood Large (3+) (Negative); Urine Ketones Negative (Negative); Urine Protein 30 (1+) mg/dL (Neg-Trace)
[2024-01-02 16:56] LABS: Bacteria Urine 2+ (None Seen); Hyaline Casts Urine 0-2 /LPF (0-2); RBC Urine >20 /HPF (0-2); WBC Urine 0-5 /HPF (0-5)
--- NOTE | 2024-01-02 19:48 | PC.NURSE ---
pt not in waiting room at this time. 1942
== END 2024-01-02 20:21 | disposition left against medical advice (07) ==
PROVIDERS: Physician Assistant Medical; Emergency Provider Emergency Medicine
DX: N93.9 Abnormal uterine and vaginal bleeding, unspecified (principal)
CPT/HCPCS: 36415; 80053; 81001; 83735; 84702; 85025; 99282; 99283

== ENCOUNTER 2024-01-09 12:35 | Outpatient (REF) | payer MEDICAID, SELFPAY ==
[2024-01-09 14:12] LABS: MANUAL DIFF FLAG NO
[2024-01-09 14:16] LABS: Basophils Percent Auto 0.3 % (0-2); Eosinophils Percent Auto 1.1 % (0-4); Hematocrit 37.7 % (37.0-47.0); Hemoglobin 12.3 g/dl (12.0-16.0); Imm Gran Abs Auto 0.01 X10*3/uL (0.00-0.03); Imm Gran Pct Auto 0.3 % (0.0-0.4); Lymphocytes Absolute Auto 1.8 X10*3/uL (1.2-4.9); Lymphocytes Percent Auto 51.7 % (20-40); Mean Corpuscular HGB Conc 32.6 g/dl (31.0-35.0); Mean Corpuscular Hemoglobin 29.4 pg (27.0-33.0); Mean Platelet Volume 12.1 fL (9.4-12.3); Monocytes Absolute Auto 0.3 X10*3/uL (0.1-1.2); Monocytes Percent Auto 7.9 % (2-11); Neutrophils Absolute Auto 1.4 x10*3/uL (2.0-8.3); Neutrophils Percent Auto 38.7 % (45-73); Platelet Count 161 X10*3/uL (160-400); Red Blood Count 4.19 X10*6/uL (4.20-5.50); White Blood Count 3.6 X10*3/uL (4.8-10.8)
[2024-01-09 15:14] LABS: HCG Quantitative < 2 mIU/mL; TSH reflex Free T4 0.88 uIU/mL (0.32-4.0)
[2024-01-10 18:07] LABS: C. trachomatis RNA TMA NOT DETECTED (NOT DETECTED); Candida glabrata RNA NOT DETECTED (NOT DETECTED); Candida species RNA NOT DETECTED (NOT DETECTED); N. gonorrhoeae RNA TMA NOT DETECTED (NOT DETECTED); Trichomonas vaginalis RNA NOT DETECTED (NOT DETECTED)
== END 2024-01-09 12:36 | disposition home or self-care (01) ==
LOC: HO.CHCLDS 12:35
PROVIDERS: Visit Provider Internal Medicine
DX: N92.0 Excessive and frequent menstruation with regular cycle (principal); R10.2 Pelvic and perineal pain
CPT/HCPCS: 36415; 81513; 84443; 84702; 85025; 87086; 87481; 87491; 87591; 87661

== ENCOUNTER 2025-05-23 11:41 | Outpatient (REF) | payer MEDICAID, SELFPAY ==
--- NOTE | ~2025-05-23 | XR_ITS ---
EXAMINATION: XR SHOULDER 2 OR MORE VIEWS LEFT HISTORY: pain COMPARISON: There are no prior studies available for comparison. FINDINGS: Four views of the left shoulder are submitted. Osseous mineralization is normal. There is no fracture or dislocation. The distal clavicle appears slightly elevated with respect to the acromium. While this could be projectional in nature, AC separation is not excluded. The soft tissues are unremarkable. XR/XR shoulder LT min 2V IMPRESSION: Possible AC separation versus projectional artifact. Clinical correlation with respect to trauma history is recommended. Electronically signed by: Shawn Duran MD 05/23/2025 12:16 PM EDT
--- OUTSIDE RECORDS SUMMARY | 2025-05-23 12:55 | XMS_ITS | Encounter Summary ---
Author Organization [employer] Address [address] [place] [address] Care Team Providers Care Web Applications Administrator Name Role Phone Vicenta Thrasher MD Primary Care Provider [phone] Alvina Fernández Unavailable [phone] Reason for Visit * Reason Onset Date Comments Reschedule 01/23/2024 Encounter Details Date Type Department Care Team ([facility] Contact Info) Description 01/23/2024 Telephone [facility] MEDICINE [address] [place] [address] Vicenta Thrasher MD [address] [place] [address] Reschedule Social History Tobacco Use Types Packs/Day Years Used Date Smoking Tobacco: Never Passive Smoke Exposure: Never Smokeless Tobacco: Never Housing Stability Answer Date Recorded What is your housing situation today? I do not have housing (Staying with others, in a hotel, in a m[facility]p, living outside on the street, on a beach, in a car, or in a park 08/29/[address] you li ve. Do you have problems with any of the following? None of the above 08/29/2023 Food Insecurity Answer Date Recorded Within the past 12 months, y ou worried that your food would run out before you got money to buy more: Sometimes True 2022 Within the past 12 months,th e food you bought just didn't last and you didn't have enough money to get more: Never True 08/29/2023 Transportation Answer Date Recorded In the past 12 months, has l ack of transportation kept you from medical appts, meetings, work or from getting things needed for daily living? No 08/29/2023 Utilities Answer Date Recorded In the past 12 months, has t he electric, gas, oil or water company threatened to shut off services in your home? No 08/29/2023 Comments Unknown Sex and Gender Information Value Date Recorded Sex Assigned at Female 08/28/2023 12:17 PM EDT Legal Sex Female 12:13 PM EDT Gender Identity Female 08/28/2023 12:17 PM EDT Sexual Orientation Straight 09/01/2023 3: 31 PM EST documented as of this encounter Miscellaneous Notes * Telephone Encounter - More Oseguera - 01/23/2024 11:58 AM EDT Tc from pt requesting r/s Procedure appt with Dr Eugene. documented in this encounter Plan of Treatment Upcoming Encounters Date Type Department Care Team ([facility] st Contact Info) Description 06/02/2025 1:00 PM EDT Clinical Support [facility] PEDS [address] [place] [address] documented as of this encounter Visit Diagnoses Not on filedocumented in this encounter Care Teams Web Applications Administrator Relationship Specialty Start Date End Date Vicenta Thrasher MD [address] [place] [address] PCP - General Internal Medicine 08/29/23 Alvina Fernández Registered Nurse 05/16/25 05/17/25 Alvina Fernández [employer] Director 08/16/24 documented as of this encounter
== END 2025-05-23 11:42 | disposition home or self-care (01) ==
LOC: HO.HHCX 11:41
PROVIDERS: Visit Provider Nurse Practitioner
DX: M79.602 Pain in left arm (principal)
CPT/HCPCS: 73030

== ENCOUNTER → 2025-05-23 11:42 | Outpatient (BNV) | payer MEDICAID, SELFPAY | PROVIDERS: Visit Provider Radiology Diagnostic Radiology | DX: M25.512 Pain in left shoulder (principal) | CPT/HCPCS: 73030 ==

== ENCOUNTER 2025-06-24 10:30 | Emergency (ER) | payer MEDICAID, SELFPAY ==
--- NOTE | ~2025-06-24 | CT_ITS ---
EXAMINATION: CT ANGIOGRAM HEAD AND NECK CLINICAL INFORMATION: Headache and syncope. Rule out aneurysm. COMPARISON: No prior available. TECHNIQUE: Noncontrast axial imaging of the head was performed. This was followed by test bolus sequences and head and neck intravenous bolus administration 70 mL of Omnipaque 350. Helical imaging was performed in the axial plane from the aortic arch to the skull vertex. The data was processed at the manufacturing engineering technologist's workstation for generation of MIP sequences. Angled MIPs and volume rendered reformatted images were also generated at an offline 3D workstation. Stenoses are assessed in accordance with NASCET criteria unless otherwise indicated. This CT examination was performed using dose optimization techniques as appropriate, variously including the following: *Automated exposure control *Adjustment of mA and/or kV according to patient size (this includes techniques or standardized protocols for targeted exams where dose is matched to indication/reason for exam; i.e. extremities or head) *Use of iterative reconstruction technique FINDINGS: NONCONTRAST HEAD CT: There is no evidence of intracranial hemorrhage or extra-axial fluid collection. There is no mass effect, or edema. No CT evidence of acute territorial infarct. Ventricles, sulci, and cisterns are normal in size and configuration for patient age. No hydrocephalus. No midline shift. No significant white matter abnormalities. Normal pituitary. Globes and orbital contents image normally. No extracranial soft tissue abnormalities. The paranasal sinuses, mastoid air cells, and tympanic cavities are normally aerated. No suspicious bony abnormalities. NECK CTA: -AORTIC ARCH: Normal in caliber. Mild atheromatous calcification. 2-vessel branching pattern. -GREAT VESSEL ORIGINS: Widely patent. No stenosis. -RIGHT COMMON CAROTID ARTERY: Normal in course and caliber to the level of the bifurcation. -CERVICAL RIGHT INTERNAL CAROTID ARTERY: Normal opacification without focal stenosis or occlusion. -LEFT COMMON CAROTID ARTERY: Normal in course and caliber to the level of the bifurcation. -CERVICAL LEFT INTERNAL CAROTID ARTERY: Normal opacification without focal stenosis or occlusion. -CERVICAL RIGHT VERTEBRAL ARTERY: Normal in course and caliber into the skull base. -CERVICAL LEFT VERTEBRAL ARTERY: Mildly dominant. Normal in course and caliber into the skull base. OTHER, SOFT TISSUES: -No lymphadenopathy or mass. No abnormal fluid collection or soft tissue swelling. -Normal thyroid. -Imaged superior mediastinal structures demonstrate residual thymus but are otherwise normal. -Imaged lung apices clear. CTA OF THE BRAIN: -INTRACRANIAL INTERNAL CAROTID ARTERIES: Minimal calcific atherosclerotic disease of the intracranial internal carotid arteries without occlusion or flow-limiting stenosis. -RIGHT ANTERIOR CEREBRAL ARTERY: Normal A1 segment. Normal arborization of the distal segments. -LEFT ANTERIOR CEREBRAL ARTERY: Normal A1 segment. Normal arborization of the distal segments. -ANTERIOR COMMUNICATING ARTERY: Normal. -RIGHT MIDDLE CEREBRAL ARTERY: Normal M1 segment of the MCA without focal stenosis or occlusion. Normal bifurcation. Normal arborization of the distal segments. -LEFT MIDDLE CEREBRAL ARTERY: Normal M1 segment of the MCA without focal stenosis or occlusion. Normal bifurcation. Normal arborization of the distal segments. -RIGHT VERTEBRAL ARTERY V4: Normal in course and caliber. Normal PICA branch. -LEFT VERTEBRAL ARTERY V4: Normal in course and caliber. Normal PICA branch. -BASILAR ARTERY: Normal without focal stenosis or occlusion. Normal appearance of the proximal superior cerebellar arteries. Normal basilar tip. -RIGHT POSTERIOR CEREBRAL ARTERY: Normal P1 segment. Normal opacification of the distal BIOLOGY PROFESSOR segments. -LEFT POSTERIOR CEREBRAL ARTERY: Normal P1 segment. Normal opacification of the distal BIOLOGY PROFESSOR segments. -POSTERIOR COMMUNICATING ARTERIES: The right is present but diminutive. The left is not well seen. Normal opacification of the superior sagittal, straight, transverse, and sigmoid sinuses. No venous thrombosis. No space-occupying hemorrhage or definite evolving infarct. CT/CT angio head neck IMPRESSION: NON-CONTRAST HEAD CT: 1. No intracranial hemorrhage or mass effect. No CT evidence of acute territorial infarct. CTA NECK: 1. Normal examination. No evidence of stenosis, occlusion, dissection, or aneurysm of the major cervical arterial vasculature. CTA HEAD: 1. Normal examination. No evidence of stenosis, occlusion, dissection, or aneurysm of the major intracranial arterial vasculature. 2. Major cortical and dural venous sinuses are patent. Electronically signed by: Skinny Jones MD 06/24/2025 01:10 PM EDT
[2025-06-24 10:34] VITALS: BP 143/80; PULSE 100; RESP 16; TEMP 37; O2SAT 100; BMI 28.6
--- NOTE | 2025-06-24 10:42 | ECG_ITS ---
Test Reason : headache Blood Pressure : */* mmHG Vent. Rate : 79 BPM Atrial Rate : 79 BPM P-R Int : 142 ms QRS Dur : 86 ms QT Int : 390 ms P-R-T Axes : 63 50 40 degrees QTcB Int : 447 ms Normal sinus rhythm with sinus arrhythmia Nonspecific T wave abnormality Borderline ECG No previous ECGs available Referred By: Generic ED Physician Electronically Signed By: CLAUDE STILES
--- NOTE | 2025-06-24 10:52 | ED.HA ---
HPI - Headache General Chief Complaint: Headache Stated Complaint: headache and sometimes vision is blurry Time Seen by Provider: 06/24/25 10:44 Source: patient Mode of arrival: ambulatory Limitations: no limitations History of Present Illness ED Provider: Bora Sanchez HPI Narrative: [age] year female with no past medical history presents to the ED for headache for the past 2 weeks and last night got so bad she had a headache which caused her to syncopized. Patient denies any chest pain before syncopal episodes. Patient denies any neck stiffness, fever, chills, slurred speech, facial droop, paralysis of extremities, nausea or vomiting. States she was prescribed Fioricet with no relief. Related Data Previous Rx's ?Medication ?Instructions ?Recorded acetaminophen 500 mg tablet 500 mg PO Q4-6H PRN pain #30 tabs 08/26/23 (Tylenol Extra Strength) ibuprofen 800 mg tablet 800 mg PO Q8H PRN pain #30 tabs 09/02/23 ketorolac 10 mg tablet 10 mg PO QID PRN pain #20 tabs 06/24/25 ondansetron 4 mg disintegrating 4 mg PO Q6H PRN nausea and 06/24/25 tablet vomiting #8 tabs Allergies Allergy/AdvReac Type Severity Reaction Status Date / Time No Known Allergies Allergy Verified 06/24/25 10:40 Review of Systems Review of Systems: Headache then syncopized Yes all other systems are reviewed and are negative PMFSH Past Medical History Medical History Lipoma of back Surgical History Status post excision of lipoma (~09/26/23) Surgical history unknown Social History Social History Alcohol intake: never Comment: counts correct Patient Tobacco Use Status: Never used Tobacco Smoked in Last 30 Days: No Second Hand Smoke Exposure: No Use of substances other than those prescribed or required for medical reasons: No Advance Directives: No Advance Directives Information Provided: Yes Patient : No Physical Exam Vital Signs: Vital Signs: Last Vital Signs Temp 98.4 F 06/24/25 15:28 Pulse 100 06/24/25 15:28 Resp 15 06/24/25 15:28 BP 132/62 08/29/25 15:28 Pulse Ox 100 06/24/25 15:28 O2 Del Method Room Air 06/24/25 15:28 BMI result Body Mass Index 28.6 Const: General: cooperative, healthy appearing, comfortable, no acute distress, well developed, alert, awake and Physically active Orientation/consciousness: patient oriented x3 HEENT: Head: Yes normal to inspection, Yes No palpable skull fracture present, Yes normocephalic and Yes atraumatic Ears: hearing grossly normal bilaterally, external ears normal, TM's normal bilaterally, TM normal on the right, TM normal on the left, EAC's normal, mastoids normal and no periauricular adenopathy Throat: Yes posterior oropharynx normal, Yes tonsils normal and Yes uvula midline Eyes: Other: Bilateral eyes tonometry pressure 19 each General: appearance normal, both eyes and all related structures Visual Goodwin: normal visual goodwin by confrontation Alignment and Position: alignment normal Periorbital: periorbital findings normal Eyelids: Yes eyelids normal Conjunctivae: conjunctivae normal Sclerae: sclerae normal Corneas: corneas normal Pupils: Equal, round and reactive pupils present EOM: EOMs intact bilaterally Direct Ophthalmoscopy: normal light reflex Neck: Neck: Yes normal visual inspection, Yes full ROM, Yes no lymphadenopathy, Yes no meningeal signs, Yes trachea midline, Yes supple, No anterior neck swelling and No tender Chest: Chest palpation & inspection: normal inspection of the chest and normal palpation of entire chest wall Resp: Effort & Inspection: normal respiratory effort and able to speak in complete sentences Auscultation: clear to auscultation bilaterally Cardio: Jugular venous distension: no JVD Heart sounds: S1 normal heart sound present and S2 normal heart sound present GI: Inspection: Yes normal to inspection Palpation (GI): Soft to palpation, not firm, nontender, no guarding and not rigid : General: No CVA tenderness and Yes no CVA tenderness Back/Spine/Pelvis: Back: no CVA tenderness, No CVA tenderness and No back tenderness Skin: General skin exam: no rashes or lesions noted, elasticity normal and turgor normal Neuro: General: patient oriented x3, gait normal, tone normal, moves all extremities, Normal light touch and pain sensation, no meningeal signs, no focal motor deficits, CN's II-XI intact bilaterally and normal sensation to monofilament Cranial nerves: Yes Equal, round and reactive pupils present Extrem: General: Yes normal to inspection, Yes full ROM and Yes capillary refill normal Psych: Appearance: grossly normal, well kempt and not disheveled NIH Stroke Scale Internal: Initial- Upon Arrival Level of Consciousness: Alert Level of Consciousness Questions: Answers both questions correctly Level of Consciousness Commands: Performs both tasks correctly Best Gaze: Normal Visual: No visual loss Facial Palsy: Normal Motor Arm (Right): No drift Motor Arm (Left): No drift Motor Leg (Right): No drift Motor Leg (Left): No drift Limb Ataxia: Absent Sensory: Normal Best Language: No aphasia Dysarthia: Normal Extinction and Inattention: No abnormality Score: 0 Medications Administered Discontinued Medications Generic Name Dose Route Start Last Admin Trade Name Diegoq PRN Reason Stop Dose Admin Acetaminophen 975 mg 06/24/25 11:22 06/24/25 12:02 Acetaminophen 325 Mg Tablet PO 06/24/25 11:23 975 mg ONCE ONE Administration Dexamethasone Sodium Phosphate 8 mg 06/24/25 12:17 06/24/25 12:45 Dexamethasone Sod Phosphate 4 Mg/Ml Vial IVPUSH 06/24/25 12:18 8 mg ONCE ONE Administration Diphenhydramine HCl 50 mg 06/24/25 11:22 06/24/25 12:02 Diphenhydramine Hcl 50 Mg/Ml Vial IVPUSH 06/24/25 11:23 50 mg ONCE ONE Administration Iohexol 100 ml 06/24/25 12:48 06/24/25 12:49 Iohexol 350 Mg/Ml 100 Ml Infus..Btl IV 06/24/25 12:49 70 ml ONCE ONE Administration Ketorolac Tromethamine 30 mg 06/24/25 13:26 06/24/25 13:47 Ketorolac Tromethamine 30 Mg/Ml Vial IVPUSH 06/24/25 13:27 30 mg ONCE ONE Administration Metoclopramide HCl 10 mg 06/24/25 11:22 06/24/25 12:02 Metoclopramide Hcl 10 Mg/2 Ml Vial IVPUSH 06/24/25 11:23 10 mg ONCE ONE Administration Morphine Sulfate 4 mg 06/24/25 12:17 06/24/25 12:46 Morphine Sulfate 4 Mg/Ml Cartridge IVPUSH 06/24/25 12:18 4 mg ONCE ONE Administration Protocol Medical Decision Making Medical Decision Making [facility] Narrative: 34-year-old female presents to ED for headache for 2 weeks which led to headache and syncopal episodes last night presents to ED for evaluation. Patient was referred by primary care provider for CT scan. Presently NIH score is 0. Patient states headache is manageable and not severe. Negative for signs of meningitis. labs EKGs hit head CT scan ordered. Heart Score 0 1:05pm: Initial labs are reassuring. Head CTA negative for brain bleed, brain aneurysm rupture, large vein occlusion, or carotid dissection. Patient given Toradol morphine Benadryl Decadron and Reglan. Not suspecting encephalitis. Not suspecting temporal arteritis. Not supecting meningitis, stroke, glaucoma, increased cranial pressure, or any other life threatening eitologuy. Patient feels better after meds. patient expalined worrisome signs and inforemd to return to the ED immeidatley. Differential Diagnosis Differential Diagnoses: The differential diagnosis associated with the presentation includes (Migraines, brain bleed, aneurysm rupture) Admission/Observation Consideration of admission/observation: Escalation of care including admission/observation considered Lab Data [facility] Lab Attestation statement: I reviewed the patient's lab results. 06/24/25 11:26 06/24/25 11:26 Labs: Lab Results 06/24/25 Range/Units 11:26 WBC 3.3 L (4.8-10.8) X10*3/uL RBC 4.62 (4.20-5.50) X10*6/uL Hgb 14.1 (12.0-16.0) g/dl Hct 42.3 (37.0-47.0) % MCV 91.6 (80.0-98.0) fL MCH 30.5 (27.0-33.0) pg MCHC 33.3 (31.0-35.0) g/dl RDW 12.8 (11.0-16.0) % Plt Count 144 L (160-400) X10*3/uL MPV 11.9 (9.4-12.3) fL Immature Gran % (Auto) 0.0 (0.0-0.4) % Neut % (Auto) 48.9 (45-73) % Lymph % (Auto) 45.0 H (20-40) % Rutherford % (Auto) 4.9 (2-11) % Eos % (Auto) 0.9 (0-4) % Baso % (Auto) 0.3 (0-2) % Lymph # (Auto) 1.5 (1.2-4.9) X10*3/uL [place]utherford # (Auto) 0.2 (0.1-1.2) X10*3/uL Eos # (Auto) 0.0 (0.0-0.4) X10*3/uL Baso # (Auto) 0.0 (0.0-0.2) X10*3/uL Abs Immat Gran (auto) 0.00 (0.00-0.03) X10*3/uL Absolute Neuts (auto) 1.6 L (2.0-8.3) x10*3/uL Absolute Nucleated RBC 0.000 (0.0-0.012) X10*3/uL Nucleated RBC % (auto) 0.0 (0.0-0.2) /100WBC PT 11.3 (10.9-12.4) SEC INR 1.0 (0.9-1.1) APTT 35.2 H (26.7-34.1) SEC Sodium 143 (135-145) mmol/L Potassium 3.5 (3.3-5.1) mmol/L Chloride 109 H (96-108) mmol/L Carbon Dioxide 26 (22-29) mmol/L Anion Gap 12 (12-20) BUN 10 (9-16) mg/dL Creatinine 0.53 (0.5-1.4) mg/dL Estim Creat Clear Calc 153.9 Estimated GFR > 60 Random Glucose 120 H (60-115) mg/dL Calcium 8.9 (8.4-10.2) mg/dL Magnesium 2.1 (1.6-2.6) mg/dL Troponin I High Sens < 2.7 (<3.5-17.0) ng/L Beta HCG, Quant < 2 mIU/mL Urine Color Yellow Urine Appearance Clear Urine pH 6.0 (5.0-9.0) Ur Specific Echo 1.020 (1.005-1.025) Urine Protein Negative (Neg-Trace) mg/dL Urine Glucose (UA) Negative (Negative) mg/dL Urine Ketones Negative (Negative) mg/dL Urine Blood Negative (Negative) Urine Nitrite Negative (Negative) Ur Leukocyte Esterase Negative (Negative) Independent Interpretation I performed an independent interpretation of an: EKG (Negative STEMI) and CT Scan Radiology Impression Discussion of test interpretation with radiology: I have reviewed the radiologist's reading. Independent Historian Clinical information obtained from an independent historian. History obtained from or confirmed by: Other (patient) Prescription Management I considered prescription management with: Pain Medication Discharge Plan Discharge Clinical Impression: Headache, Migraine, Syncope Patient Disposition: Home, Self-Care Instructions: Migraine Headache (ED), Syncope (ED), General Headache (ED) Additional Instructions: Recommend follow-up with primary care provider and neurologist. You will be discharged with pain medications. Return to the ED immediately for worsening headache, change in loss in vision, nausea, vomiting, neck stiffness, slurred speech, facial droop, paralysis of extremities, loss of vision, or any other concerning symptoms. Ordering Physician: Bora Sanchez Date of Service: 06/24/25 Procedure(s): CT angio head neck Accession Number(s): [id number] cc: Bora Sanchez; Vicenta Thrasher MD~ Report Number: [id number]: Total DLP = 1477.00 mGy-cm EXAMINATION: CT ANGIOGRAM HEAD AND NECK CLINICAL INFORMATION: Headache and syncope. Rule out aneurysm. COMPARISON: No prior available. TECHNIQUE: Noncontrast axial imaging of the head was performed. This was followed by test bolus sequences and head and neck intravenous bolus administration 70 mL of Omnipaque 350. Helical imaging was performed in the axial plane from the aortic arch to the skull vertex. The data was processed at the geospatial technologist's workstation for generation of MIP sequences. Angled MIPs and volume rendered reformatted images were also generated at an offline 3D workstation. Stenoses are assessed in accordance with NASCET criteria unless otherwise indicated. This CT examination was performed using dose optimization techniques as appropriate, variously including the following: *Automated exposure control *Adjustment of mA and/or kV according to patient size (this includes techniques or standardized protocols for targeted exams where dose is matched to indication/reason for exam; i.e. extremities or head) *Use of iterative reconstruction technique FINDINGS: NONCONTRAST HEAD CT: There is no evidence of intracranial hemorrhage or extra-axial fluid collection. There is no mass effect, or edema. No CT evidence of acute territorial infarct. Ventricles, sulci, and cisterns are normal in size and configuration for patient age. No hydrocephalus. No midline shift. No significant white matter abnormalities. Normal pituitary. Globes and orbital contents image normally. No extracranial soft tissue abnormalities. The paranasal sinuses, mastoid air cells, and tympanic cavities are normally aerated. No suspicious bony abnormalities. NECK CTA: -AORTIC ARCH: Normal in caliber. Mild atheromatous calcification. 2-vessel branching pattern. -GREAT VESSEL ORIGINS: Widely patent. No stenosis. -RIGHT COMMON CAROTID ARTERY: Normal in course and caliber to the level of the bifurcation. -CERVICAL RIGHT INTERNAL CAROTID ARTERY: Normal opacification without focal stenosis or occlusion. -LEFT COMMON CAROTID ARTERY: Normal in course and caliber to the level of the bifurcation. -CERVICAL LEFT INTERNAL CAROTID ARTERY: Normal opacification without focal stenosis or occlusion. -CERVICAL RIGHT VERTEBRAL ARTERY: Normal in course and caliber into the skull base. -CERVICAL LEFT VERTEBRAL ARTERY: Mildly dominant. Normal in course and caliber into the skull base. OTHER, SOFT TISSUES: -No lymphadenopathy or mass. No abnormal fluid collection or soft tissue swelling. -Normal thyroid. -Imaged superior mediastinal structures demonstrate residual thymus but are otherwise normal. -Imaged lung apices clear. CTA OF THE BRAIN: -INTRACRANIAL INTERNAL CAROTID ARTERIES: Minimal calcific atherosclerotic disease of the intracranial internal carotid arteries without occlusion or flow-limiting stenosis. -RIGHT ANTERIOR CEREBRAL ARTERY: Normal A1 segment. Normal arborization of the distal segments. -LEFT ANTERIOR CEREBRAL ARTERY: Normal A1 segment. Normal arborization of the distal segments. -ANTERIOR COMMUNICATING ARTERY: Normal. -RIGHT MIDDLE CEREBRAL ARTERY: Normal M1 segment of the MCA without focal stenosis or occlusion. Normal bifurcation. Normal arborization of the distal segments. -LEFT MIDDLE CEREBRAL ARTERY: Normal M1 segment of the MCA without focal stenosis or occlusion. Normal bifurcation. Normal arborization of the distal segments. -RIGHT VERTEBRAL ARTERY V4: Normal in course and caliber. Normal PICA branch. -LEFT VERTEBRAL ARTERY V4: Normal in course and caliber. Normal PICA branch. -BASILAR ARTERY: Normal without focal stenosis or occlusion. Normal appearance of the proximal superior cerebellar arteries. Normal basilar tip. -RIGHT POSTERIOR CEREBRAL ARTERY: Normal P1 segment. Normal opacification of the distal FOOD AND DRUG RESEARCH SCIENTIST segments. -LEFT POSTERIOR CEREBRAL ARTERY: Normal P1 segment. Normal opacification of the distal FOOD AND DRUG RESEARCH SCIENTIST segments. -POSTERIOR COMMUNICATING ARTERIES: The right is present but diminutive. The left is not well seen. Normal opacification of the superior sagittal, straight, transverse, and sigmoid sinuses. No venous thrombosis. No space-occupying hemorrhage or definite evolving infarct. CT/CT angio head neck IMPRESSION: NON-CONTRAST HEAD CT: 1. No intracranial hemorrhage or mass effect. No CT evidence of acute territorial infarct. CTA NECK: 1. Normal examination. No evidence of stenosis, occlusion, dissection, or aneurysm of the major cervical arterial vasculature. CTA HEAD: 1. Normal examination. No evidence of stenosis, occlusion, dissection, or aneurysm of the major intracranial arterial vasculature. 2. Major cortical and dural venous sinuses are patent. Electronically signed by: Skinny Jones MD 06/24/2025 01:10 PM EDT RP Prescriptions: New ketorolac 10 mg tablet 10 mg PO QID PRN (Reason: pain) Qty: 20 0RF Rx Instructions: received 30mg IM in the ED ondansetron 4 mg tablet,disintegrating 4 mg PO Q6H PRN (Reason: nausea and vomiting) Qty: 8 0RF No Action acetaminophen [Tylenol Extra Strength] 500 mg tablet 500 mg PO Q4-6H PRN (Reason: pain) Qty: 30 0RF ibuprofen 800 mg tablet 800 mg PO Q8H PRN (Reason: pain) Qty: 30 0RF Referrals: Vicenta Thrasher MD [Primary Care Provider, Medical] - 2 days Referral Note: Headache 2 weeks Clinical Impression: Migraine; Headache; Syncope Mick Celestin MD [Physician, Neurology] - 2 days Referral Note: Headache, Clinical Impression: Migraine; Headache; Syncope Stand Alone Forms: Work/School Release Interventions: ED Discharge Assessment Last Done: 06/24/25 15:28 Discharge Date/Time: 06/24/25 15:29 Print Language: Uzbekyrn Angela
[2025-06-24 11:35] LABS: MANUAL DIFF FLAG NO
[2025-06-24 11:37] LABS: Appearance Urine Clear; Glucose Urine UA Negative (Negative); Hematocrit 42.3 % (37.0-47.0); Hemoglobin 14.1 g/dl (12.0-16.0); Imm Gran Abs Auto 0.00 X10*3/uL (0.00-0.03); Imm Gran Pct Auto 0.0 % (0.0-0.4); Lymphocytes Absolute Auto 1.5 X10*3/uL (1.2-4.9); Mean Corpuscular HGB Conc 33.3 g/dl (31.0-35.0); Mean Corpuscular Hemoglobin 30.5 pg (27.0-33.0); Mean Corpuscular Volume 91.6 fL (80.0-98.0); NRBC Abs Auto 0.000 X10*3/uL (0.0-0.012); NRBC Pct Auto 0.0 /100WBC (0.0-0.2); PH 6.0 (5.0-9.0); Platelet Count 144 X10*3/uL (160-400); Red Blood Count 4.62 X10*6/uL (4.20-5.50); Specific Gravity - Urine 1.020 (1.005-1.025); White Blood Count 3.3 X10*3/uL (4.8-10.8)
[2025-06-24 11:42] LABS: INTERNATIONAL NORM RATIO 1.0 (0.9-1.1); Prothrombin Time 11.3 SEC (10.9-12.4)
[2025-06-24 11:44] LABS: Partial Thromboplastin Time 35.2 SEC (26.7-34.1)
[2025-06-24 12:00] VITALS: BP 141/86; PULSE 99; RESP 15; TEMP 36.9; O2SAT 100
[2025-06-24 12:02] LABS: Anion Gap 12 (12-20); Blood Urea Nitrogen 10 mg/dL (9-16); Calcium 8.9 mg/dL (8.4-10.2); Carbon Dioxide 26 mmol/L (22-29); Chloride 109 mmol/L (96-108); Creatinine Clr Calc Pharmacy 153.9; Estimated Glomerular Filt Rate > 60; Magnesium 2.1 mg/dL (1.6-2.6); Potassium 3.5 mmol/L (3.3-5.1); Sodium 143 mmol/L (135-145)
[2025-06-24 12:13] LABS: Troponin-I High Sensitivity < 2.7 ng/L (<3.5-17.0)
--- OUTSIDE RECORDS SUMMARY | 2025-06-24 12:36 | XMS_ITS | Encounter Summary ---
Author Organization [facility] Address [address] [place] [address] Care Team Providers Care Market Research Assistant Name Role Phone Vicenta Thrasher MD Primary Care Provider [phone] Alvina Fernández Unavailable [phone] Reason for Visit * Reason Onset Date Comments Reschedule 01/23/2024 Encounter Details Date Type Department Care Team ([facility] Contact Info) Description 01/23/2024 Telephone [facility] MEDICINE [address] [place] [address] Vicenta Thrasher MD [address] [place] [address] Reschedule Social History Tobacco Use Types Packs/Day Years Used Date Smoking Tobacco: Never Passive Smoke Exposure: Never Smokeless Tobacco: Never Housing Stability Answer Date Recorded What is your housing situation today? I do not have housing (Staying with others, in a hotel, in a long-term, living outside on the street, on a [...] documented in this encounter Plan of Treatment Not on file documented as of this encounter Visit Diagnoses Not on filedocumented in this encounter Care Teams Market Research Assistant Relationship Specialty Start Date End Date Vicenta Thrasher MD [address] [place] [id number] PCP - General Internal Medicine 08/29/23 Alvina Fernández Registered Nurse 05/16/25 05/17/25 Alvina Fernández Hourly Sign Language Interpreter 08/16/24 documented as of this encounter
--- OUTSIDE RECORDS SUMMARY | 2025-06-24 12:36 | XMS_ITS | Clinical Summary ---
Author Organization [employer] Address [address] [place] [address] 7t [place] [address] Care Team Providers Care Release Manager Name Role Phone Vicenta Thrasher MD Primary Care Provider [phone] Allergies No known active allergies Medications Acetaminophen Extra Strength 500 MG tablet TAKE 1 TABLET BY MOUTH EVERY 4 TO 6 HOURS NEEDED FOR PAIN 60 tablet 3 10/10/20 23 Active Vit-Fe Fumarate-FA ( Plus) 27-1 MG tablet One tablet by mouth daily 90 tablet 2 05/07/20 24 Active doxylamine (Unisom) 25 MG tabletIndications:H yperemesis Take 1 tablet (25 mg) by mouth if needed at bedtime for nausea. 30 tablet 3 09/03/20 24 Active pyridoxine (Vitamin B-6) 25 MG tabletIndications:H yperemesis Take 1 tablet (25 mg) by mouth Once per day. 90 tablet 3 09/03/20 24 025 Active Benzocaine-Menthol (Cepacol) 15-2.3 MG lozengeIndications: Acute nasopharyngitis Dissolve 1 Units in the mouth if needed in the morning, at noon, in the evening, and at bedtime (sore throat). 16 lozenge 1 01/06/20 25 Active fluticasone (Flonase Allergy Relief) 50 MCG/ACT nasal sprayIndications:Ac consuelo nasopharyngitis Administer 1 spray into each nostril 2 times daily. Shake gently. Before first use, prime pump. After use, clean tip and replace cap. 16 g 01/06/20 25 026 Active methocarbamol (Robaxin) 500 MG tabletIndications:M usculoskeletal arm pain, left Take 1 tablet (500 mg) by mouth every 6 (six) hours for 10 days. 40 tablet 05/23/20 25 Active ibuprofen 600 MG tabletIndications:M usculoskeletal arm pain, left,Acute pain of left shoulder Take 1 tablet (600 mg) by mouth every 6 (six) hours for 14 days. 56 tablet 05/23/20 25 025 butalbital-acetamin ophen-caffeine 50-325-40 MG tablet Take 1 tablet by mouth every 6 (six) hours if needed for headaches for up to 10 days. 30 tablet 06/08/20 25 025 Active Problems Problem Noted Date Diagnosed Date 7 weeks gestation of 05/07/2024 Assessment & Plan (05/07/2024 3:48 PM EDT): Happy w news of 7 weeks calc by LMP Denies any symptoms ,mainly symptoms associated w current 12/2023 CBC hb 12.3 ,TSH wnl , 08/2023 chem wnl -Referred today to [facility] -start prenal vitamins -vit B6 25 mg daily for nausea -sucralfate PRN for GERD and epigastric pain -hydration and frequent but small meals advised -alarm signs and symptoms discussed GERD (gastroesophageal reflux disease) Nausea and vomiting during 05/07/2024 Lipoma of back 08/31/2023 Encounters Date Type Department Care Team Description 06/22/2025 Orders Only [facility] [address] [place], [place] [phone] Vicenta Thrasher MD Intractable chronic post-traumatic headache (Primary Dx) 06/21/2025 Telephone [employer] [facility] [address] [place], [place] [phone] Vicenta Thrasher MD CT HEAD ORDER 06/08/2025 3:15 PM EDT Office Visit [facility] [address], [place] [phone] Vicenta Thrasher MD Intractable chronic post-traumatic headache (Primary Dx) 06/08/2025 Travel 06/03/2025 Telephone [facility] [address] [place], [place] [phone] Vicenta Thrasher MD 06/03/2025 Patient Outreach [address] [address] Vicenta Thrasher MD Care Coordination ([facility]/YAKOV Moore- Follow up call) 06/02/2025 Telephone [facility] [address] [place] [address] Vicenta Thrasher MD No Show 05/30/2025 Patient Outreach [address] [address] Vicenta Thrasher MD Care Coordination ([facility]/Dionna Allen TC#1-SDOH assistance- LVM) 05/27/[address] [address] Vicenta Thrasher MD Care Management (C3 follow up call) 05/23/2025 10:00 AM EDT Office Visit [address] [address] Jazmyne Encinas NP Labile blood pressure (Primary Dx); Musculoskeletal arm pain, left; Acute pain of left shoulder 05/23/2025 Results Follow-Up [address] [address] Jazmyne Encinas NP XR Shoulder 2+ Views Left 05/23/2025 Travel 05/17/2025 Patient Outreach [address] [address] Vicenta Thrasher MD 05/17/2025 Patient Outreach [address] [address] Vicenta Thrasher MD 05/16/2025 Patient Outreach [address] [address] Vicenta Thrasher MD 04/18/2025 Patient Outreach [address] [address] Vicenta Thrasher MD Care Coordination ([facility]SORAYA Allen, TB Clinic appt reminder) 04/11/2025 Patient Outreach [address] [address] Vicenta Thrasher MD Care Coordination ([facility]/CHW Lauren Allen, PT-1 Assistance) 04/08/2025 Telephone [facility] [address] [facility] [place] [address] Vicenta Thrasher MD Care Management ([facility]3 follow up call) from Last 3 Months Immunizations Immunization Administration Dates Next Due Hep B, adult 09/05/2023 Influenza injectable quadrivalent preservative f ree 08/29/2023 Family History Medical History Relation Name Comments Hypertension Mother Relation Name Status Comments Mother Alive Social History Tobacco Use Types Packs/Day Years Used Date Smoking Tobacco: Never Passive Smoke Exposure: Never Smokeless Tobacco: Never Tobacco Cessation:Counseling Given: Not Answered Alcohol Use Standard Drinks/Week Comments Never 0 (1 standard drink = 0.6 oz pur e alcohol) Housing Stability Answer Date Recorded What is your housing situation today? I have ronnigloria lopez 08/03/[address] you li ve. Do you have problems with any of the following? None of the above 08/03/2024 Food Insecurity Answer Date Recorded Within the past 12 months, y ou worried that your food would run out before you got money to buy more: Never True 11/08/2024 Within the past 12 months,th e food you bought just didn't last and you didn't have enough money to get more: Never True Transportation Answer Date Recorded In the past 12 months, has l ack of transportation kept you from medical appts, meetings, work or from getting things needed for daily living? No 11/08/2024 Utilities Answer Date Recorded In the past 12 months, has t he [employer], gas, oil or water [employer] threatened to shut off services in your home? No 08/29/2023 Internet Access Answer Date Recorded Internet Access Q1 Yes 06/28/2024 Internet Access Q2 Not on file 06/28/2024 Comments No Sex and Gender Information Value Date Recorded Sex Assigned at Female 08/28/2023 12:17 PM EDT Legal Sex Female 12:13 PM EDT Gender Identity Female 08/28/2023 12:17 PM EDT Sexual Orientation Straight 09/01/2023 3: 31 PM EST Last Filed Vital Signs Vital Sign Reading Time Taken Comments Blood Pressure 110/78 06/08/2025 3:17 PM EDT Pulse 72 06/08/2025 3:17 PM EDT Temperature 36.9 C (98.5 F) 06/08/2025 3:17 PM EDT Respiratory Rate 16 06/08/2025 3:17 PM EDT Oxygen Saturation 98% 05/23/2025 9:57 AM EDT Inhaled Oxygen Concentration - - Weight 72.1 kg (159 lb) 06/08/2025 3:17 PM EDT Height 162.6 cm (5' 4 ) 05/23/2025 9:57 AM EDT Body Mass Index 27.29 05/23/2025 9:57 AM EDT Plan of Treatment Health Maintenance Due Date Last Done Comments Depression Screening 1992 HIV Screening 1992 Disability Screening 1992 Alcohol/Substance Use Screening 2004 Family Planning (PISQ) 2007 HPV Vaccines (1 - 3-dose series) 2007 Pap Smear 2013 Cervical Cancer Screening 2022 HPV/Cotest 2022 Hepatitis B Vaccines (2 of 3 - 19+ 3-dose series) 10/03/2023 09/05/2023 COVID-19 Vaccine (1 - 2023-2 5 season) 2024 Influenza Vaccine (#1) 2025 , 08/29/2023 SDOH Screening 11/08/2025 11/08/2024 Tobacco Screening 06/08/2026 06/08/2025 DTaP/Tdap/Td Vaccines (2 - T d or Tdap) 10/07/2034 10/07/2024 Zoster Vaccines (1 of 2) 2042 RSV Patients and Patients Aged 60 years or older (1 - 1-dose 75+ series) 2067 Hepatitis C Screening Completed 08/29/2023 HIB Vaccines Aged Out No longer eligi ble based on patient's age to complete this topic Hepatitis A Vaccines Aged Out No long er eligible based on patient's age to complete this topic IPV Vaccines Aged Out No longer eligi ble based on patient's age to complete this topic Meningococcal B Vaccine Aged Out No l onger eligible based on patient's age to complete this topic Meningococcal Vaccine Aged Out No jolanta darlene eligible based on patient's age to complete this topic Pneumococcal Vaccine: Pediatrics (0 to 5 Years) and At-Risk Patients (6 to 49) Years Aged Out No longer eligible b ased on patient's age to complete this topic RSV under 20 months Aged Out No longe r eligible based on patient's age to complete this topic Rotavirus Vaccines Aged Out No longer eligible based on patient's age to complete this topic Procedures Procedure Name Priority Date/Time Associated Diagnosis Comments HIGH SENSITIVITY TROPONIN I Routine 06/24/2025 11:26 AM EDT Intractable chronic post-traumatic headache HCG, TOTAL, QN Routine 06/24/2025 11:26 AM EDT Intractable chronic post-traumatic headache MAGNESIUM Routine 06/24/2025 11:26 AM EDT Intractable chronic post-traumatic headache BASIC METABOLIC PANEL Routine 06/24/2025 11:26 AM EDT Intractable chronic post-traumatic headache APTT Routine 06/24/2025 11:26 AM EDT Intractable chronic post-traumatic headache PROTHROMBIN TIME-INR Routine 06/24/2025 11:26 AM EDT Intractable chronic post-traumatic headache CBC WITH AUTO DIFFERENTIAL Routine 06/24/2025 11:26 AM EDT Intractable chronic post-traumatic headache URINALYSIS WITH REFLEX MICROSCOPIC Routine 06/24/2025 11:26 AM EDT Intractable chronic post-traumatic headache XR SHOULDER 2+ VIEWS LEFT Routine 05/23/2025 11:06 AM EDT Musculoskeletal arm pain, left Acute pain of left shoulder POCT , URINE Routine 05/23/2025 10:48 AM EDT Musculoskeletal arm pain, left HEPATITIS PANEL, GENERAL Routine 08/29/2023 12:39 PM EDT Preop examination Routine medical exam from Last 3 Months or Most Recently Relevant to Health Maintenance Results * High Sensitivity Troponin I (06/24/2025 11:26 AM EDT) [facility] TROPONIN I HIGH SENSITIVITY <2.7 <3.5 - 17.0 ng/L [facility] Comment:The Gavin high sens itivity Troponin-I results should beused in conjunction with other diagnostic information suchas ECG, clinical observations and information, and patientsymptoms to aid in the diagnosis of MD. 06/24/2025 11:2 6 AM EDT 06/24/2025 11:32 AM EDT us Generic External Data Provider LAB BLOOD ORDERAB LES Final Result Performing Organization Address City/State/[facility] Co de Phone Number [facility] [address] [place] [phone] * (ABNORMAL) CBC auto differential (06/24/2025 11:26 AM EDT) [facility] White Blood Count 3.3(L) 4.8 - 10.8 X10*3/uL [facility] Red Blood Count 4.62 4.20 - 5.50 X10*6/uL [facility] Hemoglobin 14.1 12.0 - 16.0 g/dl [facility] Hematocrit 42.3 37.0 - 47.0 % [facility] Mean Corpuscular Volume 91.6 80.0 - 98.0 fL [facility] Mean Corpuscular Hemoglobin 30.5 27.0 - 33.0 pg [facility] Mean Corpuscular HGB Conc 33.3 31.0 - 35.0 g/dl [facility] Red Cell Distribution Width 12.8 11.0 - 16.0 % [facility] Platelet Count 144(L) 160 - 400 X10*3/uL [facility] Mean Platelet Volume 11.9 9.4 - 12.3 fL [facility] Neutrophils Percent Auto 48.9 45 - 73 % [facility] Imm Gran Pct Auto 0.0 0.0 - 0.4 % [facility] Lymphocytes Percent Auto 45.0(H) 20 - 40 % [facility] Monocytes Percent Auto 4.9 2 - 11 % [facility] Eosinophils Percent Auto 0.9 0 - 4 % [facility] Basophils Percent Auto 0.3 0 - 2 % [facility] NRBC Pct Auto 0.0 0.0 - 0.2 /100WBC [facility] Neutrophils Absolute Auto 1.6(L) 2.0 - 8.3 x10*3/uL [facility] Imm Gran Abs Auto 0.00 0.00 - 0.03 X10*3/uL [facility] Lymphocytes Absolute Auto 1.5 1.2 - 4.9 X10*3/uL [facility] Monocytes Absolute Auto 0.2 0.1 - 1.2 X10*3/uL [facility] Eosinophils Absolute Auto 0.0 0.0 - 0.4 X10*3/uL [facility] Basophils Absolute Auto 0.0 0.0 - 0.2 X10*3/uL [facility] NRBC Abs Auto 0.000 0.0 - 0.012 X10*3/uL [facility] 06/24/2025 11:2 6 AM EDT 06/24/2025 11:32 AM EDT us Generic External Data Provider LAB BLOOD ORDERAB LES Final Result [facility] [address] [place] [phone] * Urinalysis w/reflex microscopic (06/24/2025 11:26 AM EDT) Color Urine Yellow [facility] Appearance Urine Clear [facility] PH 6.0 5.0 - 9.0 [facility] Glucose Urine UA Negative Negative mg/dL [facility] Urine Blood Negative Negative [facility] Specific [place] - Urine 1.020 1.005 - 1.025 [facility] Urine Protein Negative Neg-Trace mg/dL [facility] Urine Ketones Negative Negative mg/dL [facility] Nitrite Urine Negative Negative [facility] Leukocyte Esterase Urine Negative Negative [facility] 06/24/2025 11:2 6 AM EDT 06/24/2025 11:32 AM EDT Narrative [facility] - 06/24/2025 11:37 AM EDT Urine, Clean Catch Generic External Data Provider LAB URINE ORDERAB LES Final Result Performing Organization Address [facility] Co de Phone Number [facility] [address] [place] [phone] * (ABNORMAL) Partial Thromboplastin Time, Activated (APTT) (06/24/2025 11:26 AM EDT) Partial Thromboplastin Time 35.2(H) 26.7 - 34.1 SEC [facility] 06/24/2025 11:2 6 AM EDT 06/24/2025 11:32 AM EDT Generic External Data Provider LAB BLOOD ORDERAB LES Final Result Performing Organization Address [facility]/[employer] de Phone Number [facility] [address] [place] [phone] * Prothrombin Time-INR (06/24/2025 11:26 AM EDT) Prothrombin Time 11.3 10.9 - 12.4 SEC [facility] INTERNATIONAL NORM RATIO 1.0 0.9 - 1.1 [facility] Comment:INTERNATIONAL NORMAL IZED RATIO (INR) REFERENCE RANGES Reference RangeFor patients not on anticoagulant therapy: 0.9 - 1.1INR ranges for oral anticoagulanttherapy:For prevention and treatment of venous thrombosis and pulmonary embolism: 2.0 - 3.0For acute myocardial infarction with aspirin therapy: 2.0 - 3.0For acute myocardial infarction without aspirin therapy: 3.0 - 4.0For patients with mechanical prosthetic heart valves: 2.5 - 3.5 06/24/2025 11:2 6 AM EDT 06/24/2025 11:32 AM EDT Generic External Data Provider LAB BLOOD ORDERAB LES Final Result [facility] [address] [place] [address] [phone] * hCG, Total, Quantitative (06/24/2025 11:26 AM EDT) HCG Quantitative <2 mIU/mL [facility] Comment:Weeks post LMP Appr oximate hCG(Last Menstrual Period) Range (mIU/ml)3 - 4 weeks 9 - 1304 - 5 weeks 75 - 2,6005 - 6 weeks 850 - 20,8006 - 7 weeks 4000 - 100,2007 - 12 weeks 11,500 - 289,89990 - 16 weeks 18,300 - 137,57658 - 29 weeks (2nd trimester) 1,400 - 53,45163 - 41 weeks (3rd trimester) 940 - 60,000The Gavin B- hCG assay is used for the early detection ofpregnancy; it cannot be used to diagnose any conditionunrelated to . If a B-hCG level is not supportedby the clinical evidence, results should be confirmed by analternative method (qualitative urine hCG, for example). 06/24/2025 11:2 6 AM EDT 06/24/2025 11:32 AM EDT Generic External Data Provider LAB BLOOD ORDERAB LES Final Result [facility] [address] [place] [address] [phone] * Magnesium (06/24/2025 11:26 AM EDT) Magnesium 2.1 1.6 - 2.6 mg/dL [facility] 06/24/2025 11:2 6 AM EDT 06/24/2025 11:32 AM EDT us Generic External Data Provider LAB BLOOD ORDERAB LES Final Result Performing Organization Address City/[facility]/ZIP Co de Phone Number [facility] [address] [place] [phone] * (ABNORMAL) Basic Metabolic Panel (06/24/2025 11:26 AM EDT) Sodium 143 135 - 145 mmol/L [facility] Potassium 3.5 3.3 - 5.1 mmol/L [facility] Chloride 109(H) 96 - 108 mmol/L [facility] Carbon Dioxide 26 22 - 29 mmol/L [facility] Anion Gap 12 12 - 20 [facility] Urea Nitrogen (BUN) 10 9 - 16 mg/dL [facility] Creatinine, Serum 0.53 0.5 - 1.4 mg/dL [facility] Creatinine Clr Calc Pharmacy 153.9 [facility] Comment:Provided height and weight: 165 cm,78 kg.eGFR (calculated from the MDRD study equation) and eCrCl(calculated from the Cockcroft-Gault equation) are based ondifferent parameters and may not yield comparable results.If eCrCl result is absurd, please check patient'sheight/weight. Estimated Glomerular Filt Rate >60 [facility] Comment:Chronic Kidney Disea se: Estimated GFR < 60 mL/min/1.54g5Ajfmvf Kidney Disease: Estimated GFR < 15 mL/min/1.73m2 Glucose 120(H) 60 - 115 mg/dL [facility] Calcium 8.9 8.4 - 10.2 mg/dL [facility] 06/24/2025 11:2 6 AM EDT 06/24/2025 11:32 AM EDT us Generic External Data Provider LAB BLOOD ORDERAB LES Final Result Performing Organization Address City/[facility]/ZIP Co de Phone Number [facility] [address] [place] [phone] [phone] * XR Shoulder 2+ Views Left (05/23/2025 11:06 AM EDT) Anatomical Region Laterality Modality Upper Extremities, Shoulder Left Radi ographic Imaging 05/23/2025 11:0 6 AM EDT Narrative 05/23/2025 12:19 PM EDT [address] [address] XRay Report Signed Patient: Jody Locke MR#: [id number] : 1990 Acct:[id number] Age/Sex: 34 / F ADM Date: 05/23/25 Loc: [facility] Attending Dr: Jazmyne Encinas Ordering Physician: Jazmyne Encinas Date of Service: 05/23/25 Procedure(s): XR shoulder LT min 2V Accession Number(s): [id number] cc: Jazmyne Encinas EXAMINATION: XR SHOULDER 2 OR MORE VIEWS LEFT HISTORY: pain COMPARISON: There are no prior studies available for comparison. FINDINGS: Four views of the left shoulder are submitted. Osseous mineralization is normal. There is no fracture or dislocation. The distal clavicle appears slightly elevated with respect to the acromium. While this could be projectional in nature, AC separation is not excluded. The soft tissues are unremarkable. XR/XR shoulder LT min 2V IMPRESSION: Possible AC separation versus projectional artifact. Clinical correlation with respect to trauma history is recommended. Electronically signed by: Shawn Duran MD 05/23/2025 12:16 PM EDT Dictated By: Shawn Duran MD Signed By: <Electronically signed by Shawn Duran MD in OV> 05/23/25 1216 DD/ 1106 TD/TT: 05/23/25 1156 Jewelry Bench Molder: Procedure Note Donotuseinterpreter, Image - 05/23/[address] [address] XRay Report Signed Patient: Jody LockeMR#: [id number] : 1990Acct:[id number] Age/Sex: 34 / FADM Date: 05/23/25 Loc: [facility]NCX Attending Dr: Jazmyne Encinas Ordering Physician: Jazmyne Encinas Date of Service: 05/23/25 Procedure(s): XR shoulder LT min 2V Accession Number(s): [id number] cc: Jazmyne Encinas EXAMINATION: XR SHOULDER 2 OR MORE VIEWS LEFT HISTORY: pain COMPARISON: There are no prior studies available for comparison. FINDINGS: Four views of the left shoulder are submitted. Osseous mineralization is normal. There is no fracture or dislocation. The distal clavicle appears slightly elevated with respect to the acromium. While this could be projectional in nature, AC separation is not excluded. The soft tissues are unremarkable. XR/XR shoulder LT min 2V IMPRESSION: Possible AC separation versus projectional artifact. Clinical correlation with respect to trauma history is recommended. Electronically signed by: Shawn Duran MD 05/23/2025 12:16 PM EDT RP Dictated By: Shawn Duran MD Signed By: <Electronically signed by Shawn Duran MD in OV> 05/23/25 1216 DD/ 1106 TD/TT: 05/23/25 1156 Jewelry Bench Molder: Jazmyne Encinas AGRONOMY PROFESSOR IMG XR PROCEDURES Final Result * POCT Urine (05/23/2025 10:48 AM EDT) Pathologist [facility] Preg Test, Ur Negative Negative, Indeterminate, None Detected, Invalid, Specimen unsatisfactory for evaluation, Weakly Positive, 2+ QC Media Lot # [id number] Lot# Expiration Date [id number] Urine 05/23/2025 10:4 8 AM EDT Jazmyne Encinas NP POINT OF CARE TEST ENTER/EDIT O RDERABLES Final Result * Hepatitis Panel, General (08/29/2023 12:39 PM EDT) Pathologist [facility] Hepatitis A IgM Nonreactive Nonreactive [facility] Comment:IgM antibodies to HURT V not detected; does not exclude earlyacute or recovered HAV infection. ~Hepatitis B Surface Antibody NONREACTIVE Nonreactive [facility] Comment:Nonreactive: < 8.00 mIU/mL Hepatitis B Core Antibody Nonreactive Nonreactive [facility] Hepatitis C Antibody Nonreactive Nonreactive [facility] Comment:Antibodies to HCV no t detected; does not exclude early acuteHCV infection. Hepatitis B Surface Ag Negative Negative [facility] Blood 08/29/2023 12:3 9 PM EDT 08/29/2023 2:30 PM EDT Vicenta Thrasher MD LAB BLOOD ORDERABLES Final Re sult [facility] [address] [place] [phone] from Last 3 Months or Most Recently Relevant to Health Maintenance [place] [address] [place] [address] C3 Care Teams Release Manager Relationship Specialty Start Date End Date Vicenta Thrasher MD [address] [place] [phone] PCP - General Internal Medicine 08/29/23 Alvina Fernández Fine Sander 08/16/24
--- OUTSIDE RECORDS SUMMARY | 2025-06-24 12:36 | XMS_ITS | Encounter Summary ---
Author Organization [employer] Address [address] [place] [address] Care Team Providers Care Propulsion Systems Engineer Name Role Phone Vicenta Thrasher MD Primary Care Provider [phone] Reason for Visit * Reason Onset Date Comments CT HEAD ORDER 06/21/2025 Encounter Details Date Type Department Care Team ([facility] Contact Info) Description 06/21/2025 Telephone [email or web address] Information Management [address] [place] [address] Vicenta Thrasher MD [address] [place] [address] CT HEAD ORDER Social History Tobacco Use Types Packs/Day Years Used Date Smoking Tobacco: Never Passive Smoke Exposure: Never Smokeless Tobacco: Never Alcohol Use Standard Drinks/Week Comments Never 0 (1 standard drink = 0.6 oz pur e alcohol) Housing Stability Answer Date Recorded What is your housing situation today? I have ronni lopez 08/03/[address] you [...] encounter Miscellaneous Notes * Telephone Encounter - Laverne Arellano - 06/22/2025 10:22 AM EDT Tc from pt needing assistance scheduling appt for CT scan Contact pt at [phone] Icelandic speaker * Telephone Encounter - Suzy Barnhart - 06/21/2025 1:58 PM EDT Incoming fax from [facility]. Protocol for this history is head/brain wo - please review and advise documented in this encounter Plan of Treatment Not on file documented as of this encounter Visit Diagnoses Not on filedocumented in this encounter Care Teams Propulsion Systems Engineer Relationship Specialty Start Date End Date Vicenta Thrasher MD [address] [place] [address] PCP - General Internal Medicine 08/29/23 Alvina Fernández Binding Nicker 08/16/24 documented as of this encounter
--- OUTSIDE RECORDS SUMMARY | 2025-06-24 12:36 | XMS_ITS | Encounter Summary ---
Author Organization [employer] Address [address] [place] [address] 7 [place] [address] Care Team Providers Care Sap Grc Security Name Role Phone Vicenta Thrasher MD Primary Care Provider [phone] Reason for Referral * Imaging (Routine) - Authorized Specialty Diagnoses / Procedures Referred By Contac t Referred To Contact Radiology Diagnoses Intractable chronic post-traumatic headache Procedures CT Head w/o Contrast Vicenta Thrasher MD [address] [place] [address] Phone: tel: fax: [address] Phone: tel: fax: Referral ID Status Reason Start Date Expiration Date V isits Requested Visits Authorized [id number] Authorized 06/22/2025 06/22/2026 1 1 Encounter Details Date Type Department Care Team ([facility] st Contact Info) Description 06/22/2025 Orders Only [facility] [address] [place] [address] Vicenta Thrasher MD [address] [place] [address] Intractable chronic post-traumatic headache (Primary Dx) Social History Tobacco Use Types Packs/Day Years [...] PM EST documented as of this encounter Plan of Treatment Scheduled Orders Name Type Priority Associated Diagnoses Orde r Schedule CT Head w/o Contrast Imaging Routine Intractable chronic post-traumatic headache Expected: 06/22/2025, Expires: 06/22/2026 documented as of this encounter Procedures Procedure Name Priority Date/Time Associated Diagnosis [...] 11:26 AM EDT Intractable chronic post-traumatic headache documented in this encounter Results * High Sensitivity Troponin I (06/24/2025 11:26 AM EDT) Pathologist [facility] TROPONIN I HIGH SENSITIVITY <2.7 <3.5 - 17.0 ng/L [facility] Comment:The Gavin high sens itivity Troponin-I results should beused in conjunction with other diagnostic information suchas ECG, clinical observations and information, and patientsymptoms to aid in the diagnosis of [place]. 06/24/2025 11:2 6 AM EDT 06/24/2025 11:32 AM EDT us Generic External Data Provider LAB BLOOD ORDERAB LES Final Result Performing Organization Address City/State/[facility] Co de Phone Number [facility] [address] [place] [phone] * hCG, Total, Quantitative (06/24/2025 11:26 AM EDT) Pathologist [facility] HCG Quantitative <2 mIU/mL [facility] Comment:Weeks post LMP Appro ximate hCG(Last Menstrual Period) Range (mIU/ml)3 - 4 weeks 9 - 1304 - 5 weeks 75 - 2,6005 - 6 weeks 850 - 20,8006 - 7 weeks 4000 - 100,2007 - 12 weeks 11,500 - 289,52232 - 16 weeks 18,300 - 137,80100 - 29 weeks (2nd trimester) 1,400 - 53,41792 - 41 weeks (3rd trimester) 940 - [...] ORDERAB LES Final Result Performing Organization Address [facility] de Phone Number [facility] [address] [place] [phone] * Magnesium (06/24/2025 11:26 AM EDT) Magnesium 2.1 1.6 - 2.6 mg/dL [facility] 06/24/2025 11:2 6 AM EDT 06/24/2025 11:32 AM EDT Generic External Data Provider LAB BLOOD ORDERAB LES Final Result Performing Organization Address [facility] de Phone Number [facility] [address] [place] [phone] * (ABNORMAL) Basic Metabolic Panel (06/24/2025 11:26 AM EDT) Sodium 143 135 - 145 mmol/L [facility] Potassium 3.5 3.3 - 5.1 mmol/L [facility] Chloride 109(H) 96 - 108 mmol/L [facility] Carbon Dioxide 26 22 - 29 mmol/L [facility] Anion Gap 12 12 - 20 [facility] Urea Nitrogen (BUN) 10 9 - 16 mg/dL [facility] Creatinine, Serum 0.53 0.5 - 1.4 mg/dL [facility] Creatinine Clr Calc Pharmacy 153.9 [facility] Comment:Provided height and weight: 165 cm,78 kg.eGFR (calculated from the MDRD study equation) and eCrCl(calculated from the Cockcroft-Gault equation) are based ondifferent parameters and may not yield comparable results.If eCrCl result is absurd, please check patient'sheight/weight. Estimated Glomerular Filt Rate >60 [facility] Comment:Chronic Kidney Disea se: Estimated GFR < 60 mL/min/1.59z1Anhtxc Kidney Disease: Estimated GFR < 15 mL/min/1.73m2 Glucose 120(H) 60 - 115 mg/dL [facility] Calcium 8.9 8.4 - 10.2 mg/dL [facility] 06/24/2025 11:2 6 AM EDT 06/24/2025 11:32 AM EDT Generic External Data Provider LAB BLOOD ORDERAB LES Final Result Performing Organization Address [facility] Co de Phone Number [facility] [address] [place] [phone] * (ABNORMAL) Partial Thromboplastin Time, Activated (APTT) (06/24/2025 11:26 AM EDT) Partial Thromboplastin Time 35.2(H) 26.7 - 34.1 SEC [facility] 06/24/2025 11:2 6 AM EDT 06/24/2025 11:32 AM EDT Generic External Data Provider LAB BLOOD ORDERAB LES Final Result Performing Organization Address [facility]/ZIP Co de Phone Number [facility] [address] [place] [phone] * Prothrombin Time-INR (06/24/2025 11:26 AM EDT) Prothrombin Time 11.3 10.9 - 12.4 SEC [facility] INTERNATIONAL NORM RATIO 1.0 0.9 - 1.1 [facility] Comment:INTERNATIONAL NORMAL IZED RATIO (INR) REFERENCE [...] ORDERAB LES Final Result Performing Organization Address City/State/[facility] Co de Phone Number [facility] [address] [place] [address] [phone] * (ABNORMAL) CBC auto differential (06/24/2025 11:26 AM EDT) White Blood Count 3.3(L) 4.8 - 10.8 X10*3/uL [facility] Red Blood Count 4.62 4.20 - 5.50 X10*6/uL [facility] Hemoglobin 14.1 12.0 - 16.0 g/dl [facility] Hematocrit 42.3 37.0 - 47.0 % [facility] Mean Corpuscular Volume 91.6 80.0 - 98.0 fL [facility] Mean Corpuscular Hemoglobin 30.5 27.0 - 33.0 pg [facility] Mean Corpuscular HGB Conc 33.3 31.0 - 35.0 g/dl [facility] Red Cell Distribution Width 12.8 11.0 - 16.0 % [facility] Platelet Count 144(L) 160 - 400 X10*3/uL [facility] Mean Platelet Volume 11.9 9.4 - 12.3 fL [facility] Neutrophils Percent Auto 48.9 45 - 73 % [facility] Imm Gran Pct Auto 0.0 0.0 - 0.4 % [facility] Lymphocytes Percent Auto 45.0(H) 20 - 40 % [facility] Monocytes Percent Auto 4.9 2 - 11 % [facility] Eosinophils Percent Auto 0.9 0 - 4 % [facility] Basophils Percent Auto 0.3 0 - 2 % [facility] NRBC Pct Auto 0.0 0.0 - 0.2 /100WBC [facility] Neutrophils Absolute Auto 1.6(L) 2.0 - 8.3 x10*3/uL [facility] Imm Gran Abs Auto 0.00 0.00 - 0.03 X10*3/uL [facility] Lymphocytes Absolute Auto 1.5 1.2 - 4.9 X10*3/uL [facility] Monocytes Absolute Auto 0.2 0.1 - 1.2 X10*3/uL [facility] Eosinophils Absolute Auto 0.0 0.0 - 0.4 X10*3/uL [facility] Basophils Absolute Auto 0.0 0.0 - 0.2 X10*3/uL [facility] NRBC Abs Auto 0.000 0.0 - 0.012 X10*3/uL [facility] 06/24/2025 11:2 6 AM EDT 06/24/2025 11:32 AM EDT us Generic External Data Provider LAB BLOOD ORDERAB LES Final Result [facility] [address] [place] [address] [phone] * Urinalysis w/reflex microscopic (06/24/2025 11:26 AM EDT) Color Urine Yellow [facility] Appearance Urine Clear [facility] PH 6.0 5.0 - 9.0 [facility] Glucose Urine UA Negative Negative mg/dL [facility] Urine Blood Negative Negative [facility] Specific [place] - Urine 1.020 1.005 - 1.025 [facility] Urine Protein Negative Neg-Trace mg/dL [facility] Urine Ketones Negative Negative mg/dL [facility] Nitrite Urine Negative Negative [facility] Leukocyte Esterase Urine Negative Negative [facility] 06/24/2025 11:2 6 AM EDT 06/24/2025 11:32 AM EDT Narrative [facility] - 06/24/2025 11:37 AM EDT Urine, Clean Catch us Generic External Data Provider LAB URINE ORDERAB LES Final Result [facility] [address] [place] [phone] documented in this encounter Visit Diagnoses Diagnosis Intractable chronic post-traumatic headache- Primary documented in this encounter Care Teams Sap Grc Security Relationship Specialty Start Date End Date Vicenta Thrasher MD [address] [place] [phone] PCP - General Internal Medicine 08/29/23 Alvina Fernández Architectural Examiner 08/16/24 documented as of this encounter
[2025-06-24 12:46] VITALS: RESP 20
[2025-06-24] MEDS: iohexoL 350 MG/ML 100 ML INFUS..BTL IV (12:49)
[2025-06-24 13:57] VITALS: BP 139/77; PULSE 94; RESP 14; TEMP 36.9; O2SAT 100
[2025-06-24 15:24] VITALS: BP 132/62; PULSE 100; RESP 15; TEMP 36.9; O2SAT 100
[2025-06-24 15:28] VITALS: BP 132/62; PULSE 100; RESP 15; TEMP 36.9; O2SAT 100
== END 2025-06-24 15:29 | disposition home or self-care (01) ==
PROVIDERS: Emergency Provider Emergency Medicine; PCP Pediatrics
DX: R51.9 Headache, unspecified (principal); R55 Syncope and collapse
CPT/HCPCS: 36415; 70496; 70498; 80048; 81003; 83735; 84484; 84702; 85025; 85610; 85730; 93005; 96374; 96375; 99285; J1100; J1200; J1885; J2270; J2765; Q9967

== ENCOUNTER → 2025-06-24 10:42 | Outpatient (BNV) | payer MEDICAID, SELFPAY | PROVIDERS: Emergency Provider Emergency Medicine; PCP Pediatrics; Visit Provider Internal Medicine | DX: R51.9 Headache, unspecified (principal) | CPT/HCPCS: 93010 ==

== ENCOUNTER → 2025-06-24 10:44 | Outpatient (BNV) | payer MEDICAID, SELFPAY | PROVIDERS: Emergency Provider Emergency Medicine; PCP Pediatrics; Visit Provider Radiology Diagnostic Radiology | DX: R51.9 Headache, unspecified (principal); R55 Syncope and collapse | CPT/HCPCS: 70496; 70498 ==

== ENCOUNTER 2025-08-25 14:45 | Outpatient (REF) | payer MEDICAID, SELFPAY ==
--- OUTSIDE RECORDS SUMMARY | 2025-08-25 14:15 | XMS_ITS | Encounter Summary ---
Author Organization [employer] Address [address] [place] [address] Care Team Providers Care School Bus Monitor Name Role Phone Vicenta Thrasher MD Primary Care Provider [phone] Encounter Details Date Type Department Care Team ([facility] Contact Info) Description 08/25/2025 2:15 PM EDT Office Visit [facility] [address], [place] [phone] Vicenta Thrasher MD [address], [place] [phone] Encounter for vaccination (Primary Dx); Routine general medical examination at a health care facility; Dietary counseling; Exercise counseling; Encounter for immunization Social History Tobacco Use Types Packs/Day Years Used Date Smoking Tobacco: Never Passive Smoke Exposure: Never Smokeless Tobacco: Never Alcohol Use Standard Drinks/Week Comments Never 0 (1 standard drink = 0.6 oz pur e alcohol) Depression Answer Date Recorded Patient Health Questionnaire-9 Score 6 08/25/2025 Patient Health Questionnaire-9 Score 6 08/25/2025 Last PHQ-9: Questionnaire Data Not on file 1 Housing Stability Answer Date Recorded What is your housing situation today? I have ronin lopez 08/03/[address] you [...] off services in your home? No 08/29/2023 Depression Answer Date Recorded Patient Health Questionnaire-2 Score 2 08/25/2025 Internet Access Answer Date Recorded Internet Access Q1 Yes 06/28/2024 Internet Access Q2 Not on file 06/28/2024 Comments No Sex and Gender Information Value Date Recorded Sex Assigned at Female 08/28/2023 12:17 PM EDT Legal Sex Female 12:13 PM EDT Gender Identity Female 08/28/2023 12:17 PM EDT Sexual Orientation Straight 09/01/2023 3: 31 PM EST documented as of this encounter Last Filed Vital Signs Vital Sign Reading Time Taken Comments Blood Pressure 120/74 08/25/2025 1:53 PM EDT Pulse 68 08/25/2025 1:53 PM EDT Temperature 36.8 C (98.3 F) 08/25/2025 1:53 PM EDT Respiratory Rate 16 08/25/2025 1:53 PM EDT Oxygen Saturation - - Inhaled Oxygen Concentration - - Weight 72.1 kg (159 lb) 08/25/2025 1:53 PM EDT Height 160.7 cm (5' 3.25 ) 08/25/2025 1:53 PM ED T Body Mass Index 27.94 08/25/2025 1:53 PM EDT documented in this encounter Functional Status * Over the past 2 weeks, how often have you been bothered by any of the following problems? Question Answer Date of Assessment Author Patient Health Questionnaire -2 Score 2 08/25/2025 2:26 PM EDT Rebecca Barrientos MA * Little interest or pleasure in doing things Answer Date of Assessment Author More than half the days 08/25/2025 2:26 PM EDT Helen Ryder MA * Feeling down, depressed, or hopeless Answer Date of Assessment Author Not at all 08/25/2025 2:26 PM EDT Helen Barrientos MA * Trouble falling or staying asleep, or sleeping too much Answer Date of Assessment Author More than half the days 08/25/2025 2:26 PM EDT Helen Ryder MA * Feeling tired or having little energy Answer Date of Assessment Author More than half the days 08/25/2025 2:26 PM EDT Helen Ryder MA * Poor appetite or overeating Answer Date of Assessment Author Not at all 08/25/2025 2:26 PM EDT Helen Barrientos MA * Feeling bad about yourself - or that you are a failure or have let yourself or your family down Answer Date of Assessment Author Not at all 08/25/2025 2:26 PM EDT Helen Barrientos MA * Trouble concentrating on things, such as reading the newspaper or watching television Answer Date of Assessment Author Not at all 08/25/2025 2:26 PM EDT Helen Barrietnos MA * Moving or speaking so slowly that other people could have noticed? Or the opposite - being so fidgety or restless that you have been moving around a lot more than usual. Answer Date of Assessment Author Not at all 08/25/2025 2:26 PM EDT Helen Barrientos MA * Thoughts that you would be better off or hurting yourself in some way Answer Date of Assessment Author Not at all 08/25/2025 2:26 PM EDT Helen Barrientos MA * Patient Health Questionnaire-9 Score Answer Date of Assessment Author 6 08/25/2025 2:26 PM EDT Helen Barrientos MA * How difficult have these problems made it for you to do your work, take care of things at home, or get along with other people? Answer Date of Assessment Author Not difficult at all 08/25/2025 2:26 PM EDT Helen Humphries MA documented as of this encounter Progress Notes * Vicenta Thrasher MD - 08/25/2025 2:15 PM EDT Subjective Patient ID: Jody Locke is a 35 y.o. female who presents for her PE. Jody Locke, 35 years , here for a PE for college, attends 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 Vision Problems Jody Locke reports having eye problems for the past three months. She was prescribed glasses but does not use them. Experiences headaches, which she attributes to not wearing her glasses. Vaccination History Received tetanus vaccine last year. Unsure about prior COVID-19 vaccination history. May have received varicella vaccine during but is uncertain. Cervical Cancer Screening Underwent cervical cancer screening during at [facility]. Gastrointestinal Symptoms No gastrointestinal complaints reported; states bowel movements are normal. Menstrual History Last menstrual period discussed; currently using contraception nexplanon. Jody Locke, 35 years Vision Problems Jody Locke reports having eye problems for the past three months. She was prescribed glasses but does not use them. Experiences headaches, which she attributes to not wearing her glasses. Vaccination History Received tetanus vaccine last year. Unsure about prior COVID-19 vaccination history. May have received varicella vaccine during but is uncertain. Cervical Cancer Screening Underwent cervical cancer screening during at [facility]. Mammogram Had a mammogram in the past. Gastrointestinal Symptoms No gastrointestinal complaints reported; states bowel movements are normal. Menstrual History Last menstrual period discussed; currently using contraception. Review of Systems Constitutional: Negative for activity change, chills, fever and unexpected weight change. Respiratory: Negative for cough, shortness of breath and wheezing. Cardiovascular: Negative for chest pain, palpitations and leg swelling. Gastrointestinal: Negative for abdominal pain and blood in stool. Endocrine: Negative for polydipsia and polyuria. Genitourinary: Negative for decreased urine volume, difficulty urinating, dysuria and hematuria. Musculoskeletal: Negative for arthralgias and gait problem. Skin: Negative for color change and rash. Neurological: Negative for dizziness and headaches. Hematological: Negative for adenopathy. Psychiatric/Behavioral: Negative for dysphoric mood, hallucinations, sleep disturbance and suicidalideas. The patient is not nervous/anxious. Objective Vitals: 08/25/25 1353 BP: 120/74 BP Location: Left arm Patient Position: Sitting BP Cuff Size: Adult Pulse: 68 Resp: 16 Temp: 98.3 ??F (36.8 ??C) TempSrc: Oral Weight: 159 lb (72.1 kg) Height: 5' 3.25 (1.607 m) Physical Exam Constitutional: General: She is not in acute distress. Appearance: Normal appearance. She is not ill-appearing. HENT: Head: Normocephalic. Right Ear: Tympanic membrane and ear canal normal. Left Ear: Tympanic membrane and ear canal normal. Nose: Nose normal. Mouth/Throat: Mouth: Mucous membranes are moist. Pharynx: No oropharyngeal exudate or posterior oropharyngeal erythema. Eyes: Extraocular Movements: Extraocular movements intact. Conjunctiva/sclera: Conjunctivae normal. Pupils: Pupils are equal, round, and reactive to light. Cardiovascular: Rate and Rhythm: Normal rate and regular rhythm. Pulses: Normal pulses. Heart sounds: Normal heart sounds. Pulmonary: Effort: Pulmonary effort is normal. No respiratory distress. Breath sounds: Normal breath sounds. Abdominal: Palpations: Abdomen is soft. Musculoskeletal: General: Normal range of motion. Cervical back: Normal range of motion. Skin: General: Skin is warm. Capillary Refill: Capillary refill takes less than 2 seconds. Neurological: General: No focal deficit present. Mental Status: She is alert and oriented to person, place, and time. Psychiatric: Mood and Affect: Mood normal. Behavior: Behavior normal. Thought Content: Thought content normal. Judgment: Judgment normal. Assessment/Plan Diagnoses and all orders for this visit: Encounter for vaccination - COVID-19 VACCINE [id number] (Comirnaty) 19 yrs + Routine general medical examination at a health care facility Comments: PE done, vaccines updated today, check MMR, varicella and TB titers,Vaccinate if needed. Pap UTD, dental care and eye exam as well. Orders: - Measles, Mumps, and Rubella (MMR) Antibodies (IgG) Panel, Immune Status; Future - Varicella Zoster Antibody, IgG; Future - Hepatitis B Surface Antibody, Qualitative; Future - XR Chest 2 Views; Future - T-SPOT??.TB; Future Dietary counseling Exercise counseling Encounter for immunization - FLU VACCINE TRIVALENT [id number] (Fluarix) 19 yrs + Other orders - fluocinolone (Chical-Smoothe) 0.01 % external oil; Apply topically 3 times daily. - ketoconazole (NIZOral) 2 % shampoo; Apply topically 2 (two) times a week. Future Appointments Date Time Provider Department Center 08/25/2025 2:15 PM Vicenta Thrasher MD [facility] This note was drafted using Ambient (AI) technology. The patient/patient's guardian has been informed and has consented to the use of this technology: Yes documented in this encounter Plan of Treatment Scheduled Orders Name Type Priority Associated Diagnoses Orde r Schedule Measles, Mumps, and Rubella (MMR) Antibodies (IgG) Panel, Immune Status Lab Routine Routine general medical examination at a [facility] facility Expected: 08/25/2025 (Approximate), Expires: 08/25/2026 Varicella Zoster Antibody, IgG Lab Routine Routine general medical examination at a [facility] care facility Expected: 08/25/2025 (Approximate), Expires: 08/25/2026 Hepatitis B Surface Antibody, Qualitative Lab Routine Routine general medical examination at a [facility] care facility Expected: 08/25/2025 (Approximate), Expires: 08/25/2026 XR Chest 2 Views Imaging Routine Routine general medical examination at a [facility] facility Expected: 08/25/2025, Expires: 08/25/2026 T-SPOT .TB Lab Routine Routine general medical examination at a [facility] facility Expected: 08/25/2025 (Approximate), Expires: 08/25/2026 documented as of this encounter Visit Diagnoses Diagnosis Encounter for vaccination- Primary Routine general medical examination at a [facility] facility Dietary counseling Dietary surveillance and counseling Exercise counseling Encounter for immunization documented in this encounter Additional Health Concerns Assessment Noted Time PHQ-9 Depression Total Score: 6 08/25/20 25 2:26 PM EDT documented as of this encounter Care Teams School Bus Monitor Relationship Specialty Start Date End Date Vicenta Thrasher MD [address] [place] [id number] PCP - General Internal Medicine 08/29/23 Alvina Fernández Machine Filler 08/16/24 documented as of this encounter
--- OUTSIDE RECORDS SUMMARY | 2025-08-25 17:40 | XMS_ITS | Clinical Summary ---
Author Organization [employer] Address [address] [facility] [address] [place] [address] Care Team Providers Care Stiff Straw Hat Washer Name Role Phone Vicenta Thrasher MD Primary Care Provider [phone] Allergies No known active allergies Medications Acetaminophen Extra Strength 500 MG tablet TAKE 1 TABLET BY MOUTH EVERY 4 TO 6 HOURS NEEDED FOR PAIN 60 tablet 3 023 Active fluticasone (Flonase Allergy Relief) 50 MCG/ACT nasal sprayIndications:A cute nasopharyngitis Administer 1 spray into each nostril 2 times daily. Shake gently. Before first use, prime pump. After use, clean tip and replace cap. 16 g 025 2025 Active nabumetone (Relafen) 500 MG tablet Take 1 tablet (500 mg) by mouth 2 times daily. 60 tablet 11 025 2025 Active fluocinolone ([place]-Smoothe) 0.01 % external oil Apply topically 3 times daily. 118 mL 1 025 2025 Active ketoconazole (NIZOral) 2 % shampoo Apply topically 2 (two) times a week. 120 mL 11 025 Active Vit-Fe Fumarate-FA ( Plus) 27-1 MG tablet One tablet by mouth daily 90 tablet 2 024 2024 Discontinued(T herapy completed) doxylamine (Unisom) 25 MG tabletIndications: Hyperemesis Take 1 tablet (25 mg) by mouth if needed at bedtime for nausea. 30 tablet 3 024 2024 Discontinued(T herapy completed) pyridoxine (Vitamin B-6) 25 MG tabletIndications: Hyperemesis Take 1 tablet (25 mg) by mouth Once per day. 90 tablet 3 024 2024 Discontinued(T herapy completed) Benzocaine-Menthol (Cepacol) 15-2.3 MG lozengeIndications :Acute nasopharyngitis Dissolve 1 Units in the mouth if needed in the morning, at noon, in the evening, and at bedtime (sore throat). 16 lozenge 1 025 2024 Discontinued(T herapy completed) methocarbamol (Robaxin) 500 MG tabletIndications: Musculoskeletal arm pain, left Take 1 tablet (500 mg) by mouth every 6 (six) hours for 10 days. 40 tablet 025 2024 Discontinued(T herapy completed) ketoconazole (NIZOral) 2 % shampoo Apply topically 2 (two) times a week. 120 mL 11 025 2024 Discontinued(R eorder (will not trigger notification to Pharmacy)) fluocinolone ([place]-Smoothe) 0.01 % external oil Apply topically 3 times daily. 118 mL 1 025 2024 Discontinued(R eorder (will not trigger notification to Pharmacy)) Active Problems Problem Noted Date Diagnosed Date GERD (gastroesophageal reflux disease) Lipoma of back 08/31/2023 Resolved Problems Problem Noted Date Diagnosed Date Resolved Date 7 weeks gestation of 05/07/2024 07/14/2025 Assessment & Plan (05/07/2024 3:48 PM EDT): Happy w news of 7 weeks calc by LMP Denies any symptoms ,mainly symptoms associated w current 12/2023 CBC hb 12.3 ,TSH wnl , 08/2023 chem wnl -Referred today to [facility] -start prenal vitamins -vit B6 25 mg daily for nausea -sucralfate PRN for GERD and epigastric pain -hydration and frequent but small meals advised -alarm signs and symptoms discussed Nausea and vomiting during 05/07/2024 07/14/2025 Encounters Date Type Department Care Team Description 08/25/2025 2:15 PM EDT Office Visit [facility] [address] [place] [address] Vicenta Thrasher MD Encounter for vaccination (Primary Dx); Routine general medical examination at a health care facility; Dietary counseling; Exercise counseling; Encounter for immunization 08/25/2025 Travel 08/24/2025 Telephone [facility] [address] [place] [address] Vicenta Thrasher MD Chart Prep 08/15/[address] [address] Vicenta Thrasher MD Care Management (C3CM appt details) 08/12/[address] [address] Vicenta Thrasher MD Care Management (C3CM follow up call) 07/14/2025 9:15 AM EDT Office Visit [facility] [address] [place] [address] Vicenta Thrasher MD Intractable chronic post-traumatic headache (Primary Dx) 07/14/2025 Travel 07/13/2025 Telephone [facility] [address] [place] [address] Vicenta Thrasher MD Chart Prep 07/04/[address] [address] Vicenta Thrasher MD Care Management (C3CM follow up call) 06/22/2025 Orders Only [facility] [address] [place] [address] Vicenta Thrasher MD Intractable chronic post-traumatic headache (Primary Dx) 06/21/2025 Telephone [facility] [address] [place] [phone] HEAD ORDER 06/08/2025 3:15 PM EDT Office Visit [facility] [address] [place] [address] Vicenta Thrasher MD Intractable chronic post-traumatic headache (Primary Dx) 06/08/2025 Travel 06/03/2025 Telephone [facility] [address] [place] [address] Vicenta Thrasher MD 06/03/2025 Patient Outreach [address] [address] Vicenta Thrasher MD Care Coordination ([facility]/YAKOV Gonzales- Follow up call) 06/02/2025 Telephone [facility] [address] [place] [address] Vicenta Thrasher MD No Show 05/30/2025 Patient Outreach [facility] [address] [place] [address] Vicenta Thrasher MD Care Coordination ([facility]/YAKOV Gonzales#1-SDOH assistance- LVM) 05/27/[address] [address] Vicenta Thrasher MD Care Management (C3 follow up call) from Last 3 Months Immunizations Immunization Administration Dates Next Due Hep B, adult 09/05/2023 Influenza injectable quadrivalent preservative f ree 08/29/2023 Influenza, seasonal, injectable, preservative fr ee 08/25/2025,08/10/2024 Pfizer Covid-19 Vaccine 12+ 08/25/2025 RSV Bivalent 11/01/2024 Tdap 10/07/2024 Family History Medical History Relation Name Comments [...] 16 08/25/2025 1:53 PM EDT Oxygen Saturation 98% 05/23/2025 9:57 AM EDT Inhaled Oxygen Concentration - - Weight 72.1 kg (159 lb) 08/25/2025 1:53 PM EDT Height 160.7 cm (5' 3.25 ) 08/25/2025 1:53 PM ED T Body Mass Index 27.94 08/25/2025 1:53 PM EDT Plan of Treatment Health Maintenance Due Date Last Done Comments HIV Screening 1990 Family Planning (PISQ) 2007 HPV Vaccines (1 - 3-dose series) 2007 Pap Smear 2013 Cervical Cancer Screening 2022 HPV/Cotest 2022 Hepatitis B Vaccines (2 of 3 - 19+ 3-dose series) 10/03/2023 09/05/2023 SDOH Screening 11/08/2025 11/08/2024 Alcohol/Substance Use Screening 07/14/2026 07/14/2025 Disability Screening 07/14/2026 07/14/2025 Depression Screening 08/25/2026 08/25/2025, 08/25/2025 Tobacco Screening 08/25/2026 08/25/2025 DTaP/Tdap/Td Vaccines (2 - T d or Tdap) 10/07/2034 10/07/2024 Zoster Vaccines (1 of 2) 2042 Hepatitis C Screening Completed 08/29/2023 RSV Patients and Patients Aged 60 years or older Completed 11/01/2024 COVID-19 Vaccine Completed 08/25/2025 Influenza Vaccine Completed 08/25/2025, 08/10/2024, 08/29/2023 HIB Vaccines Aged Out No longer [...] Procedure Name Priority Date/Time Associated Diagnosis Comments CTA HEAD NECK W AND WO CONTRAST Routine 06/24/2025 11:27 AM EDT HIGH SENSITIVITY TROPONIN I Routine 06/24/2025 11:26 [...] 11:26 AM EDT Intractable chronic post-traumatic headache HEPATITIS PANEL, GENERAL Routine 08/29/2023 12:39 PM EDT Preop examination Routine medical exam from Last 3 Months or Most Recently Relevant to Health Maintenance Results * CTA Head Neck w/ and w/o Contrast (06/24/2025 11:27 AM EDT) Anatomical Region Laterality Modality Head, Neck Computed Tomogra phy 06/24/2025 11:2 7 AM EDT Narrative 06/24/2025 1:13 PM EDT [place] [address] [address] Scan Report Signed Patient: Jody Locke MR#: [id number] : 1990 Acct:[id number] Age/Sex: 34 / F ADM Date: 06/24/25 Loc: HO.ED Attending Dr: Ordering Physician: Bora Sanchez Date of Service: 06/24/25 Procedure(s): CT angio head neck Accession Number(s): [id number] cc: Bora Sanchez; Vicenta Thrasher MD Report Number: [id number]: Total DLP = 1477.00 mGy-cm EXAMINATION: CT ANGIOGRAM HEAD AND NECK CLINICAL INFORMATION: Headache and syncope. Rule out aneurysm. COMPARISON: No prior available. TECHNIQUE: Noncontrast axial imaging of the head was performed. This was followed by test bolus sequences and head and neck intravenous bolus administration 70 mL of Omnipaque 350. Helical imaging was performed in the axial plane from the aortic arch to the skull vertex. The data was processed at the orthopaedic technologist's workstation for generation of MIP sequences. Angled MIPs and volume rendered reformatted images were also generated at an offline 3D workstation. Stenoses are assessed in accordance with NASCET criteria unless otherwise indicated. This CT examination was performed using dose optimization techniques as appropriate, variously including the following: *Automated exposure control *Adjustment of mA and/or kV according to patient size (this includes techniques or standardized protocols for targeted exams where dose is matched to indication/reason for exam; i.e. extremities or head) *Use of iterative reconstruction technique FINDINGS: NONCONTRAST HEAD CT: There is no evidence of intracranial hemorrhage or extra-axial fluid collection. There is no mass effect, or edema. No CT evidence of acute territorial infarct. Ventricles, sulci, and cisterns are normal in size and configuration for patient age. No hydrocephalus. No midline shift. No significant white matter abnormalities. Normal pituitary. Globes and orbital contents image normally. No extracranial soft tissue abnormalities. The paranasal sinuses, mastoid air cells, and tympanic cavities are normally aerated. No suspicious bony abnormalities. NECK CTA: -AORTIC ARCH: Normal in caliber. Mild atheromatous calcification. 2-vessel branching pattern. -GREAT VESSEL ORIGINS: Widely patent. No stenosis. -RIGHT COMMON CAROTID ARTERY: Normal in course and caliber to the level of the bifurcation. -CERVICAL RIGHT INTERNAL CAROTID ARTERY: Normal opacification without focal stenosis or occlusion. -LEFT COMMON CAROTID ARTERY: Normal in course and caliber to the level of the bifurcation. -CERVICAL LEFT INTERNAL CAROTID ARTERY: Normal opacification without focal stenosis or occlusion. -CERVICAL RIGHT VERTEBRAL ARTERY: Normal in course and caliber into the skull base. -CERVICAL LEFT VERTEBRAL ARTERY: Mildly dominant. Normal in course and caliber into the skull base. OTHER, SOFT TISSUES: -No lymphadenopathy or mass. No abnormal fluid collection or soft tissue swelling. -Normal thyroid. -Imaged superior mediastinal structures demonstrate residual thymus but are otherwise normal. -Imaged lung apices clear. CTA OF THE BRAIN: -INTRACRANIAL INTERNAL CAROTID ARTERIES: Minimal calcific atherosclerotic disease of the intracranial internal carotid arteries without occlusion or flow-limiting stenosis. -RIGHT ANTERIOR CEREBRAL ARTERY: Normal A1 segment. Normal arborization of the distal segments. -LEFT ANTERIOR CEREBRAL ARTERY: Normal A1 segment. Normal arborization of the distal segments. -ANTERIOR COMMUNICATING ARTERY: Normal. -RIGHT MIDDLE CEREBRAL ARTERY: Normal M1 segment of the MCA without focal stenosis or occlusion. Normal bifurcation. Normal arborization of the distal segments. -LEFT MIDDLE CEREBRAL ARTERY: Normal M1 segment of the MCA without focal stenosis or occlusion. Normal bifurcation. Normal arborization of the distal segments. -RIGHT VERTEBRAL ARTERY V4: Normal in course and caliber. Normal PICA branch. -LEFT VERTEBRAL ARTERY V4: Normal in course and caliber. Normal PICA branch. -BASILAR ARTERY: Normal without focal stenosis or occlusion. Normal appearance of the proximal superior cerebellar arteries. Normal basilar tip. -RIGHT POSTERIOR CEREBRAL ARTERY: Normal P1 segment. Normal opacification of the distal SANDING MACHINE OPERATOR segments. -LEFT POSTERIOR CEREBRAL ARTERY: Normal P1 segment. Normal opacification of the distal SANDING MACHINE OPERATOR segments. -POSTERIOR COMMUNICATING ARTERIES: The right is present but diminutive. The left is not well seen. Normal opacification of the superior sagittal, straight, transverse, and sigmoid sinuses. No venous thrombosis. No space-occupying hemorrhage or definite evolving infarct. CT/CT angio head neck IMPRESSION: NON-CONTRAST HEAD CT: 1. No intracranial hemorrhage or mass effect. No CT evidence of acute territorial infarct. CTA NECK: 1. Normal examination. No evidence of stenosis, occlusion, dissection, or aneurysm of the major cervical arterial vasculature. CTA HEAD: 1. Normal examination. No evidence of stenosis, occlusion, dissection, or aneurysm of the major intracranial arterial vasculature. 2. Major cortical and dural venous sinuses are patent. Electronically signed by: Skinny Jones MD 06/24/2025 01:10 PM EDT Dictated By: Skinny Jones MD Signed By: <Electronically signed by Skinny Jones MD in OV> 06/24/25 1310 DD/ 1127 TD/TT: 06/24/25 1249 Stained Glass Installer: Procedure Note Donotuseinterpreter, Image - 06/24/[address] [address] [address] Scan Report Signed Patient: Jody LockeMR#: [id number] [id number] : 1990Acct:[id number] Age/Sex: 34 / FADM Date: 06/24/25 Loc: HO.ED Attending Dr: Ordering Physician: Bora Sanchez Date of Service: 06/24/25 Procedure(s): CT angio head neck Accession Number(s): [id number] cc: Bora Sanchez; Vicenta Thrasher MD Report Number: [id number]: Total DLP = 1477.00 mGy-cm EXAMINATION: CT ANGIOGRAM HEAD AND NECK CLINICAL INFORMATION: Headache and syncope. Rule out aneurysm. COMPARISON: No prior available. TECHNIQUE: Noncontrast axial imaging of the head was performed. This was followed by test bolus sequences and head and neck intravenous bolus administration 70 mL of Omnipaque 350. Helical imaging was performed in the axial plane from the aortic arch to the skull vertex. The data was processed at the orthopaedic technologist's workstation for generation of MIP sequences. Angled MIPs and volume rendered reformatted images were also generated at an offline 3D workstation. Stenoses are assessed in accordance with NASCET criteria unless otherwise indicated. This CT examination was performed using dose optimization techniques as appropriate, variously including the following: *Automated exposure control *Adjustment of mA and/or kV according to patient size (this includes techniques or standardized protocols for targeted exams where dose is matched to indication/reason for exam; i.e. extremities or head) *Use of iterative reconstruction technique FINDINGS: NONCONTRAST HEAD CT: There is no evidence of intracranial hemorrhage or extra-axial fluid collection. There is no mass effect, or edema. No CT evidence of acute territorial infarct. Ventricles, sulci, and cisterns are normal in size and configuration for patient age. No hydrocephalus. No midline shift. No significant white matter abnormalities. Normal pituitary. Globes and orbital contents image normally. No extracranial soft tissue abnormalities. The paranasal sinuses, mastoid air cells, and tympanic cavities are normally aerated. No suspicious bony abnormalities. NECK CTA: -AORTIC ARCH: Normal in caliber. Mild atheromatous calcification. 2-vessel branching pattern. -GREAT VESSEL ORIGINS: Widely patent. No stenosis. -RIGHT COMMON CAROTID ARTERY: Normal in course and caliber to the level of the bifurcation. -CERVICAL RIGHT INTERNAL CAROTID ARTERY: Normal opacification without focal stenosis or occlusion. -LEFT COMMON CAROTID ARTERY: Normal in course and caliber to the level of the bifurcation. -CERVICAL LEFT INTERNAL CAROTID ARTERY: Normal opacification without focal stenosis or occlusion. -CERVICAL RIGHT VERTEBRAL ARTERY: Normal in course and caliber into the skull base. -CERVICAL LEFT VERTEBRAL ARTERY: Mildly dominant. Normal in course and caliber into the skull base. OTHER, SOFT TISSUES: -No lymphadenopathy or mass. No abnormal fluid collection or soft tissue swelling. -Normal thyroid. -Imaged superior mediastinal structures demonstrate residual thymus but are otherwise normal. -Imaged lung apices clear. CTA OF THE BRAIN: -INTRACRANIAL INTERNAL CAROTID ARTERIES: Minimal calcific atherosclerotic disease of the intracranial internal carotid arteries without occlusion or flow-limiting stenosis. -RIGHT ANTERIOR CEREBRAL ARTERY: Normal A1 segment. Normal arborization of the distal segments. -LEFT ANTERIOR CEREBRAL ARTERY: Normal A1 segment. Normal arborization of the distal segments. -ANTERIOR COMMUNICATING ARTERY: Normal. -RIGHT MIDDLE CEREBRAL ARTERY: Normal M1 segment of the MCA without focal stenosis or occlusion. Normal bifurcation. Normal arborization of the distal segments. -LEFT MIDDLE CEREBRAL ARTERY: Normal M1 segment of the MCA without focal stenosis or occlusion. Normal bifurcation. Normal arborization of the distal segments. -RIGHT VERTEBRAL ARTERY V4: Normal in course and caliber. Normal PICA branch. -LEFT VERTEBRAL ARTERY V4: Normal in course and caliber. Normal PICA branch. -BASILAR ARTERY: Normal without focal stenosis or occlusion. Normal appearance of the proximal superior cerebellar arteries. Normal basilar tip. -RIGHT POSTERIOR CEREBRAL ARTERY: Normal P1 segment. Normal opacification of the distal SANDING MACHINE OPERATOR segments. -LEFT POSTERIOR CEREBRAL ARTERY: Normal P1 segment. Normal opacification of the distal SANDING MACHINE OPERATOR segments. -POSTERIOR COMMUNICATING ARTERIES: The right is present but diminutive. The left is not well seen. Normal opacification of the superior sagittal, straight, transverse, and sigmoid sinuses. No venous thrombosis. No space-occupying hemorrhage or definite evolving infarct. CT/CT angio head neck IMPRESSION: NON-CONTRAST HEAD CT: 1. No intracranial hemorrhage or mass effect. No CT evidence of acute territorial infarct. CTA NECK: 1. Normal examination. No evidence of stenosis, occlusion, dissection, or aneurysm of the major cervical arterial vasculature. CTA HEAD: 1. Normal examination. No evidence of stenosis, occlusion, dissection, or aneurysm of the major intracranial arterial vasculature. 2. Major cortical and dural venous sinuses are patent. Electronically signed by: Skinny Jones MD 06/24/2025 01:10 PM EDT RP Dictated By: Skinny Jones MD Signed By: <Electronically signed by Skinny Jones MD in OV> 06/24/25 1310 DD/ 1127 TD/TT: 06/24/25 1249 Stained Glass Installer: [facility] External Provider IMG CT PROCEDURES Edited Result - Final * High Sensitivity Troponin I (06/24/2025 11:26 AM EDT) [facility] TROPONIN I HIGH SENSITIVITY <2.7 <3.5 - 17.0 ng/L [facility] Comment:The Gavin high sens itivity Troponin-I results should beused in conjunction with other diagnostic information suchas ECG, clinical observations and information, and patientsymptoms to aid in the diagnosis of MS. 06/24/2025 11:2 6 AM EDT 06/24/2025 11:32 AM EDT Generic External Data Provider LAB BLOOD ORDERAB LES Final Result [facility] [address] [place] [phone] * (ABNORMAL) CBC auto differential (06/24/2025 11:26 AM EDT) [facility] White Blood Count 3.3(L) 4.8 - 10.8 X10*3/uL [facility] Red Blood Count 4.62 4.20 - 5.50 X10*6/uL [facility] Hemoglobin 14.1 12.0 - 16.0 g/dl [facility] Hematocrit 42.3 37.0 - 47.0 % [facility] Mean Corpuscular Volume 91.6 80.0 - 98.0 fL [facility] Mean Corpuscular Hemoglobin 30.5 27.0 - 33.0 pg [facility] Mean Corpuscular HGB Conc 33.3 31.0 - 35.0 g/dl [facility] Red Cell Distribution Width 12.8 11.0 - 16.0 % [facility] Platelet Count 144(L) 160 - 400 X10*3/uL [facility] Mean Platelet Volume 11.9 9.4 - 12.3 fL [facility] Neutrophils Percent Auto 48.9 45 - 73 % [facility] Imm Gran Pct Auto 0.0 0.0 - 0.4 % [facility] Lymphocytes Percent Auto 45.0(H) 20 - 40 % [facility] Monocytes Percent Auto 4.9 2 - 11 % [facility] Eosinophils Percent Auto 0.9 0 - 4 % [facility] Basophils Percent Auto 0.3 0 - 2 % [facility] NRBC Pct Auto 0.0 0.0 - 0.2 /100WBC [facility] Neutrophils Absolute Auto 1.6(L) 2.0 - 8.3 x10*3/uL [facility] Imm Gran Abs Auto 0.00 0.00 - 0.03 X10*3/uL [facility] Lymphocytes Absolute Auto 1.5 1.2 - 4.9 X10*3/uL [facility] Monocytes Absolute Auto 0.2 0.1 - 1.2 X10*3/uL [facility] Eosinophils Absolute Auto 0.0 0.0 - 0.4 X10*3/uL [facility] Basophils Absolute Auto 0.0 0.0 - 0.2 X10*3/uL [facility] NRBC Abs Auto 0.000 0.0 - 0.012 X10*3/uL [facility] 06/24/2025 11:2 6 AM EDT 06/24/2025 11:32 AM EDT us Generic External Data Provider LAB BLOOD ORDERAB LES Final Result [facility] [address] [place] [phone] * Urinalysis w/reflex microscopic (06/24/2025 11:26 AM EDT) Color Urine Yellow [facility] Appearance Urine Clear [facility] PH 6.0 5.0 - 9.0 [facility] Glucose Urine UA Negative Negative mg/dL [facility] Urine Blood Negative Negative [facility] Specific [place] - Urine 1.020 1.005 - 1.025 [facility] Urine Protein Negative Neg-Trace mg/dL [facility] Urine Ketones Negative Negative mg/dL [facility] Nitrite Urine Negative Negative [facility] Leukocyte Esterase Urine Negative Negative [facility] 06/24/2025 11:2 6 AM EDT 06/24/2025 11:32 AM EDT Narrative [facility] - 06/24/2025 11:37 AM EDT Urine, Clean Catch us Generic External Data Provider LAB URINE ORDERAB LES Final Result Performing Organization Address [facility]/ZIP Co de Phone Number [facility] [address] [place] [phone] * (ABNORMAL) Partial Thromboplastin Time, Activated (APTT) (06/24/2025 11:26 AM EDT) Partial Thromboplastin Time 35.2(H) 26.7 - 34.1 SEC [facility] 06/24/2025 11:2 6 AM EDT 06/24/2025 11:32 AM EDT us Generic External Data Provider LAB BLOOD ORDERAB LES Final Result Performing Organization Address [facility] Co de Phone Number [facility] [address] [place] [phone] * Prothrombin Time-INR (06/24/2025 11:26 AM EDT) Prothrombin Time 11.3 10.9 - 12.4 SEC [facility] INTERNATIONAL NORM RATIO 1.0 0.9 - 1.1 [facility] Comment:INTERNATIONAL NORMAL IZED RATIO (INR) REFERENCE [...] ORDERAB LES Final Result Performing Organization Address City/[facility] de Phone Number [facility] [address] [place] [phone] * hCG, Total, Quantitative (06/24/2025 11:26 AM EDT) HCG Quantitative <2 mIU/mL [facility] Comment:Weeks post LMP Appro ximate hCG(Last Menstrual Period) Range (mIU/ml)3 - 4 weeks 9 - 1304 - 5 weeks 75 - 2,6005 - 6 weeks 850 - 20,8006 - 7 weeks 4000 - 100,2007 - 12 weeks 11,500 - 289,28498 - 16 weeks 18,300 - 137,01078 - 29 weeks (2nd trimester) 1,400 - 53,74163 - 41 weeks (3rd trimester) 940 - [...] ORDERAB LES Final Result Performing Organization Address City/[facility] Co de Phone Number [facility] [facility] [address] [place] [address] [phone] * Magnesium (06/24/2025 11:26 AM EDT) Pathologist [facility] Magnesium 2.1 1.6 - 2.6 mg/dL [facility] 06/24/2025 11:2 6 AM EDT 06/24/2025 11:32 AM EDT us Generic External Data Provider LAB BLOOD ORDERAB LES Final Result Performing Organization Address [facility] Co de Phone Number [facility] [address] [place] [address] [phone] * (ABNORMAL) Basic Metabolic Panel (06/24/2025 11:26 AM EDT) Pathologist [facility] Sodium 143 135 - 145 mmol/L [facility] Potassium 3.5 3.3 - 5.1 mmol/L [facility] Chloride 109(H) 96 - 108 mmol/L [facility] Carbon Dioxide 26 22 - 29 mmol/L [facility] Anion Gap 12 12 - 20 [facility] Urea Nitrogen (BUN) 10 9 - 16 mg/dL [facility] Creatinine, Serum 0.53 0.5 - 1.4 mg/dL [facility] Creatinine Clr Calc Pharmacy 153.9 [facility] Comment:Provided height and weight: 165 cm,78 kg.eGFR (calculated from the MDRD study equation) and eCrCl(calculated from the Cockcroft-Gault equation) are based ondifferent parameters and may not yield comparable results.If eCrCl result is absurd, please check patient'sheight/weight. Estimated Glomerular Filt Rate >60 [facility] Comment:Chronic Kidney Disea se: Estimated GFR < 60 mL/min/1.14o0Obrmua Kidney Disease: Estimated GFR < 15 mL/min/1.73m2 Glucose 120(H) 60 - 115 mg/dL [facility] Calcium 8.9 8.4 - 10.2 mg/dL [facility] 06/24/2025 11:2 6 AM EDT 06/24/2025 11:32 AM EDT us Generic External Data Provider LAB BLOOD ORDERAB LES Final Result Performing Organization Address [facility] Co de Phone Number [facility] [address] [place] [phone] * Hepatitis Panel, General (08/29/2023 12:39 PM EDT) Hepatitis A IgM Nonreactive Nonreactive [facility] Comment:IgM antibodies to HURT V not detected; does not exclude earlyacute or recovered HAV infection. ~Hepatitis B Surface Antibody NONREACTIVE Nonreactive [facility] Comment:Nonreactive: < 8.00 mIU/mL Hepatitis B Core Antibody Nonreactive Nonreactive [facility] Hepatitis C Antibody Nonreactive Nonreactive [facility] Comment:Antibodies to HCV no t detected; does not exclude early acuteHCV infection. Hepatitis B Surface Ag Negative Negative [facility] Blood 08/29/2023 12:3 9 PM EDT 08/29/2023 2:30 PM EDT Vicenta Thrasher MD LAB BLOOD ORDERABLES Final Re sult Performing Organization Address [facility] Co de Phone Number [facility] [address] [place] [phone] from Last 3 Months or Most Recently Relevant to Health Maintenance Insurance [facility] C3 Care Teams Stiff Straw Hat Washer Relationship Specialty Start Date End Date Vicenta Thrasher MD [address] [place] [phone] PCP - General Internal Medicine 08/29/23 Alvina Fernández Base Cloth Inspector 08/16/24
--- OUTSIDE RECORDS SUMMARY | 2025-08-25 17:40 | XMS_ITS | Encounter Summary ---
Author Organization [employer] [facility] Address [address] [place] [address] Care Team Providers Care Client Retention Specialist Name Role Phone Vicenta Thrasher MD Primary Care Provider [phone] Encounter Details Date Type Department Care Team (Latest Contact Info) Description 08/25/2025 Travel Social History Tobacco Use Types Packs/Day Years [...] PM EST documented as of this encounter Functional Status * Over the [...] 2:26 PM EDT Helen Barrientos MA * Moving or speaking so slowly [...] Humphries [place] documented as of this encounter Plan of Treatment Not on file documented as of this encounter Visit Diagnoses Not on filedocumented in this encounter Additional Health Concerns Assessment Noted Time PHQ-9 Depression Total Score: 6 08/25/20 25 2:26 PM EDT documented as of this encounter Care Teams Client Retention Specialist Relationship Specialty Start Date End Date Vicenta Thrasher MD [address] [place] [phone] PCP - General Internal Medicine 08/29/23 Alvina Fernández Resource Economist 08/16/24 documented as of this encounter
--- OUTSIDE RECORDS SUMMARY | 2025-08-25 17:40 | XMS_ITS | Encounter Summary ---
Author Organization [employer] Address [address] [facility] 7[address] [place] [address] Care Team Providers Care Hot Knife Foxing Cutter Name Role Phone Vicenta Thrasher MD Primary Care Provider [phone] Alvina Fernández Unavailable Reason for Visit * Reason Onset Date Comments Reschedule 01/23/2024 Encounter Details Date Type Department Care Team ([facility] Contact Info) Description 01/23/2024 Telephone [facility] MEDICINE [address] [place] [address] Vicenta Thrasher MD [address] [place] [address] Reschedule Social History Tobacco Use Types Packs/Day Years Used Date Smoking Tobacco: Never Passive Smoke Exposure: Never Smokeless Tobacco: Never Housing Stability Answer Date Recorded What is your housing situation today? I do not have housing (Staying with others, in a hotel, in a penitentiary, living outside on the street, on a [...] on filedocumented in this encounter Care Teams Hot Knife Foxing Cutter Relationship Specialty Start Date End Date Vicenta Thrasher MD [address] [place] [phone] PCP - General Internal Medicine 08/29/23 Alvina Fernández Registered Nurse 05/16/25 05/17/25 Alvina Fernández Surface Grinding Machine Hand 08/16/24 documented as of this encounter
--- OUTSIDE RECORDS SUMMARY | 2025-08-25 17:40 | XMS_ITS | Encounter Summary ---
Author Organization [employer] Address [address] [facility] 7t [place] [address] Care Team Providers Care Patient'S Librarian Name Role Phone Vicenta Thrasher MD Primary Care Provider [phone] Reason for Visit * Reason Onset Date Comments Chart Prep 08/24/2025 Encounter Details Date Type Department Care Team ([facility] Contact Info) Description 08/24/2025 Telephone [facility] [address] [place] [address] Vicenta Thrasher MD [address] [place] [address] Chart Prep Social History Tobacco Use Types Packs/Day Years [...] encounter Miscellaneous Notes * Telephone Encounter - Helen Barrientos [place] - 08/24/2025 2:19 PM EDT Chart Prep Labs: not applicable Images: not applicable Referrals: appointment pending Vaccines due: Covid, Flu, Hep B, and HPV Screenings: pap smear, STI screening, LMP, and PISQ Overdue care gaps: Tobacco documented in this encounter Plan of Treatment Not on file documented as of this encounter Visit Diagnoses Not on filedocumented in this encounter Additional Health Concerns Assessment Noted Time PHQ-9 Depression Total Score: 9 07/14/ 25 9:32 AM EDT documented as of this encounter Care Teams Patient'S Librarian Relationship Specialty Start Date End Date Vicenta Thrasher MD [address] [place] [phone] PCP - General Internal Medicine 08/29/23 Alvina Fernández Antenna Machine Operator 08/16/24 documented as of this encounter
[2025-08-26 04:27] LABS: HBS Num1 9.91 mIU/mL (0-7.99)
[2025-08-26 05:19] LABS: HBS Num2 9.84 mIU/mL (0-7.99); HBS Num3 9.59 mIU/mL (0-7.99); ~Hepatitis B Surface Antibody GRAYZONE (Nonreactive)
[2025-08-26 05:44] LABS: Rubeola IgG (Measles) 155.00 AU/mL
[2025-08-28 02:29] LABS: TS Negative Control Passed; TS Panel A 22; TS Panel B 47; TS Positive Control Passed; TSpotTB Positive (Negative)
== END 2025-08-25 14:46 | disposition home or self-care (01) ==
LOC: HO.CHCLDS 14:45
PROVIDERS: Visit Provider Pediatrics
DX: Z01.84 Encounter for antibody response examination (principal); Z00.00 Encounter for general adult medical examination without abnormal findings; Z11.3 Encounter for screening for infections with a predominantly sexual mode of transmission; Z11.59 Encounter for screening for other viral diseases
CPT/HCPCS: 36415; 86481; 86706; 86735; 86762; 86765; 86787

== ENCOUNTER 2025-09-01 09:24 | Outpatient (REF) | payer MEDICAID, SELFPAY ==
--- NOTE | ~2025-09-01 | XR_ITS ---
EXAMINATION: XR CHEST CLINICAL INFORMATION: BCG vaccine COMPARISON: None available. TECHNIQUE: 2 views of the chest were obtained. FINDINGS: The cardiomediastinal silhouette is within normal limits. The lungs are well expanded. There is no focal consolidation, edema, or effusion. No pneumothorax. No acute osseous abnormality. XR/XR chest 2V IMPRESSION: No acute findings Electronically signed by: Magdaleno Chowdhury MD 09/01/2025 10:04 AM HER[facility]ILA
--- OUTSIDE RECORDS SUMMARY | 2025-09-01 10:30 | XMS_ITS | Encounter Summary ---
Author Organization [employer] Address [address] [facility] 7t [place] [address] Care Team Providers Care Field Liability Generalist Name Role Phone Vicenta Thrasher MD Primary Care Provider [phone] Reason for Visit * Reason Comments Care Coordination C3M/YAKOV Palomo- Follow Up Encounter Details Date Type Department Care Team (Latest Contact Info) Description 08/29/2025 Patient Outreach [facility] MEDICINE [address] [place] [address] Vicenta Thrasher MD [address] [place] [address] Care Coordination (Jackie/YAKOV Moore- Follow Up) Social History Tobacco Use Types Packs/Day Years [...] PM EST documented as of this encounter Progress Notes * Lauren Allen - 08/29/2025 12:44 PM EST CHW Lauren Allen, placed outbound call to patient's parent introducing herself calling from [facility]. Patient's name, and address confirmed. CHW followed up on PT-1 services to see of patient is in need of assistance booking for next TB appointment on 09/20/2025 @10:30AM. Per patient, she will not be attending appointment as per patient, PPC discussed reason for patient testing positive and o longer needing TB clinic. CHW reinforced that MARISOL Drew was informed byTB clinic this is patient's 3rd appointment booked and should patient miss 3rd appointment, patientwill discharged from practice, and no longer will be given booking opportunities. No further questions or concerns. CHW educated parent of [facility] Walk-In Urgent Care Located in [facility] with extended clinic hours Mondays through 8:00AM-8:00PM, Fridays 8:30AM-4:30PM, and Saturdays 9AM-1PM as well as patient provided with after-hours line for [facility], , which offer night time triage service and option to transfer to python engineer provider if needed. CHW reinforced direct contact information for any additional questions or concerns. Parent acknowledged understanding and agrees with plan and able to repeat back to appeals writer. A follow up call will be placed within 10 days, patient agrees with plan. documented in this encounter Plan of Treatment Not on file documented as of this encounter Visit Diagnoses Not on filedocumented in this encounter Additional Health Concerns Assessment Noted Time PHQ-9 Depression Total Score: 6 08/25/20 25 2:26 PM EDT documented as of this encounter Care Teams Field Liability Generalist Relationship Specialty Start Date End Date Vicenta Thrasher MD [address] [place] [phone] PCP - General Internal Medicine 08/29/23 Alvina Fernández Phone Manager 08/16/24 documented as of this encounter
--- OUTSIDE RECORDS SUMMARY | 2025-09-01 10:30 | XMS_ITS | Encounter Summary ---
Author Organization [employer] Address [address] [facility] 7t [place] [address] Care Team Providers Care Social Media Editor Name Role Phone Vicenta Thrasher MD Primary Care Provider [phone] Reason for Visit * Reason Onset Date Comments Care Management 08/29/2025 C3CM follow up c all Encounter Details Date Type Department Care Team ([facility] Contact Info) Description 08/29/2025 Telephone [facility] MEDICINE [address] [place] [address] Vicenta Thrasher MD [address] [place] [address] Care Management (C3CM follow up call) Social History Tobacco Use Types Packs/Day Years [...] encounter Miscellaneous Notes * Telephone Encounter - Bentley Drew - 08/29/2025 11:20 AM EST CM Bentley Drew RN and bahraini creole per diem interpreter bentley placed outbound call to patient. Patient's name, and address confirmed. Patient states is doing well with no recent illnesses or emergency room visits. Hardwood Floor Refinisher called to update on TB clinic appointment on 09/20/25 10:30am andthe importance of attending as she has missed previous appointments and office will not reschedule.Patient states that she is not going to go to this appointment as her pcp Dr. Thrasher states that she does not need to go to this appointment. Hardwood Floor Refinisher reviewd office note and could not find supporting documentation. Message sent to Dr. Thrasher to advise as we would want to cancel appointment if she does not need it or educate and encourage patient to attend the appointment. No further questions or concerns. CM reinforced direct contact information or CHW for any additional questions or concerns. Education provided on Walk-In Urgent Care located in [facility] of [facility]. Patient provided with after-hours line for [facility], , which offer night time triage service and option to transfer to editor dictionary provider if needed. Patient verbalizes understanding, and able to repeat back to health technical writer. A follow up call will be placed within 10 days, patientagrees with plan. documented in this encounter Plan of Treatment Not on file documented as of this encounter Visit Diagnoses Not on filedocumented in this encounter Additional Health Concerns Assessment Noted Time PHQ-9 Depression Total Score: 6 08/25/20 25 2:26 PM EDT documented as of this encounter Care Teams Social Media Editor Relationship Specialty Start Date End Date Vicenta Thrasher MD [address] [place] [phone] PCP - General Internal Medicine 08/29/23 Bentley Fernández Hardwood Floor Refinisher 08/16/24 documented as of this encounter
--- OUTSIDE RECORDS SUMMARY | 2025-09-01 10:30 | XMS_ITS | Encounter Summary ---
Author Organization [employer] Address [address] [facility] 7[address] [place] [address] Care Team Providers Care Band Splicer Name Role Phone Vicenta Thrasher MD Primary Care Provider [phone] VikiAlvina diehl Unavailable Reason for Visit * Reason Onset Date Comments Reschedule 01/23/2024 Encounter Details Date Type Department Care Team ([facility] Contact Info) Description 01/23/2024 Telephone [facility] MEDICINE [address] [place] [address] Vicenta Thrasher MD [address] [place] [address] Reschedule Social History Tobacco Use Types Packs/Day [...] on filedocumented in this encounter Care Teams Band Splicer Relationship Specialty Start Date End Date Vicenta Thrasher MD [address] [place] [phone] PCP - General Internal Medicine 08/29/23 Alvina Drew Registered Nurse 05/16/25 05/17/25 Alvina Fernández Sheet Metal Pattern Cutter 08/16/24 documented as of this encounter
--- OUTSIDE RECORDS SUMMARY | 2025-09-01 10:30 | XMS_ITS | Clinical Summary ---
Author Organization [facility] Address [address] [facility] [address] [facility] [address] [place] [address] Care Team Providers Care Import/Export Agent Name Role Phone Vicenta Thrasher MD Primary Care Provider [phone] Allergies No known active allergies Medications Acetaminophen [...] 60 tablet 11 025 2025 Active fluocinolone (Red Corral-Smoothe) 0.01 % external oil Apply topically 3 [...] (will not trigger notification to Pharmacy)) fluocinolone (Red Corral-Smoothe) 0.01 % external oil Apply topically 3 [...] , 08/2023 chem wnl -Referred today to [employer] TECHNICIAN -start prenal vitamins -vit B6 25 mg daily for nausea -sucralfate PRN for GERD and epigastric pain -hydration and frequent but small meals advised -alarm signs and symptoms discussed Nausea and vomiting during 05/07/2024 07/14/2025 Encounters Date Type Department Care Team Description 08/29/2025 Patient Outreach [facility] [address] [place] [phone] Vicenta Thrasher MD Care Coordination (C3M/CHW Lauren Allen TC- Follow Up) 08/29/[address] [address] Vicenta Thrasher MD Care Management (C3CM follow up call) 08/25/2025 2:15 PM EDT Office Visit [facility] [address] [place] [address] Vicenta Thrasher MD Encounter for vaccination (Primary Dx); Routine general medical examination at a health care facility; Dietary counseling; Exercise counseling; Encounter for immunization 08/25/2025 Travel 08/24/2025 Telephone [facility] [address] [place] [address] Vicenta Thrasher MD Chart Prep 08/15/[address] [address] Vicenta Thrasher MD Care Management (C3CM appt details) 08/12/[address] [address] Vicenta Thrasher MD Care Management (C3CM follow up call) 07/14/2025 9:15 AM EDT Office Visit [facility] [address] [place] [address] Vicenta Thrasher MD Intractable chronic post-traumatic headache (Primary Dx) 07/14/2025 Travel 07/13/2025 Telephone [facility] [address] [place] [address] Vicenta Thrasher MD Chart Prep 07/04/[address] [address] Vicenta Thrasher MD Care Management (C3CM follow up call) 06/22/2025 Orders Only [facility] [address] [place] [address] Vicenta Thrasher MD Intractable chronic post-traumatic headache (Primary Dx) 06/21/2025 Telephone [facility] [address] [place] [address] HEAD ORDER 06/08/2025 3:15 PM EDT Office Visit [facility] [address] [place] [address] Vicenta Thrasher MD Intractable chronic post-traumatic headache (Primary Dx) 06/08/2025 Travel 06/03/2025 Telephone [facility] [address] [place] [address] Vicenta Thrasher MD 06/03/2025 Patient Outreach [facility] [address] [place] [address] Vicenta Thrasher MD Care Coordination (C3/CHW YAKOV Castellano- Follow up call) 06/02/2025 Telephone [facility] [address] [place], [place] [phone] Vicenta Thrasher MD No Show from Last 3 Months Immunizations Immunization Administration [...] Procedure Name Priority Date/Time Associated Diagnosis Comments XR CHEST 2 VIEWS Routine 09/01/2025 9:50 AM EST Routine general medical examination at a health care facility T-SPOT(R).TB Routine 08/25/2025 2:47 PM EDT Routine general medical examination at a health care facility HEPATITIS B SURFACE ANTIBODY, QUALITATIVE Routine 08/25/2025 2:47 PM EDT Routine general medical examination at a health care facility VARICELLA ZOSTER ANTIBODY, IGG Routine 08/25/2025 2:47 PM EDT Routine general medical examination at a health care facility MEASLES, MUMPS, AND RUBELLA (MMR) AB (IGG) PANEL, IMMUNE STATUS Routine 08/25/2025 2:47 PM EDT Routine general medical examination at a health care facility CTA HEAD NECK W AND WO CONTRAST [...] Recently Relevant to Health Maintenance Results * XR Chest 2 Views (09/01/2025 9:50 AM EST) Anatomical Region Laterality Modality Chest Radiographic Akci ging 09/01/2025 9:50 AM EST Narrative 09/01/2025 10:08 AM EST [address] [address] XRay Report Signed Patient: Jody Locke MR#: [id number] 664 : 1990 Acct:[id number] Age/Sex: 35 / F ADM Date: 09/01/25 [facility] Att[facility]: Vicenta Thrasher MD Ordering Physician: Vicenta Thrasher MD Date of Service: 09/01/25 Procedure(s): XR chest 2V Accession Number(s): [id number] cc: Vicenta Thrasher MD Reason for Exam: BCG vaccine EXAMINATION: XR CHEST CLINICAL INFORMATION: BCG vaccine COMPARISON: None available. TECHNIQUE: 2 views of the chest were obtained. FINDINGS: The cardiomediastinal silhouette is within normal limits. The lungs are well expanded. There is no focal consolidation, edema, or effusion. No pneumothorax. No acute osseous abnormality. XR/XR chest 2V IMPRESSION: No acute findings Electronically signed by: Magdaleno Chowdhury MD 09/01/2025 10:04 AM EST Dictated By: Magdaleno Chowdhury MD Signed By: <Electronically signed by Magdaleno Chowdhury MD in OV> 09/01/25 1004 DD/ 0950 TD/TT: 09/01/25 0955 [employer]uitware Brusher: Procedure Note Donotuseinterpreter, Image - 09/01/[address] [address] XRay Report Signed Patient: Jody LockeMR#: [id number] 664 : 1990Acct:[id number] Age/Sex: 35 / FADM Date: 09/01/25 Loc: AlbinoCX Attending Dr: Vicenta Thrasher MD Ordering Physician: Vicenta Thrasher MD Date of Service: 09/01/25 Procedure(s): XR chest 2V Accession Number(s): [id number] cc: Vicenta Thrasher MD Reason for Exam: BCG vaccine EXAMINATION: XR CHEST CLINICAL INFORMATION: BCG vaccine COMPARISON: None available. TECHNIQUE: 2 views of the chest were obtained. FINDINGS: The cardiomediastinal silhouette is within normal limits. The lungs are well expanded. There is no focal consolidation, edema, or effusion. No pneumothorax. No acute osseous abnormality. XR/XR chest 2V IMPRESSION: No acute findings Electronically signed by: Magdaleno Chowdhury MD 09/01/2025 10:04 AM EST Dictated By: Magdaleno Chowdhury MD Signed By: <Electronically signed by Magdaleno Chowdhury MD in OV> 09/01/25 1004 DD/ TD/TT: 09/01/25954 [employer]uitware Brusher: TONEY us Vicenta Thrasher MD IMG XR PROCEDURES Final Resul t * (ABNORMAL) T-SPOT??.TB (08/25/2025 2:47 PM EDT) Pathologist [facility] T Spot TB Positive( A) Negative [facility] Comment: Diagnosing or excluding tuberculosis (TB) disease andassessing the probability of latent TB infection (LTBI)requires a combination of epidemiological, historical,medical and diagnostic findings that should be takeninto consideration when interpreting T-SPOT.TB testresults. A positive test result does not rule in activeTB disease caused by Mycobacterium tuberculosis(M. tuberculosis); active TB disease should beconfirmed by other tests such as sputum smear andculture, PCR, and chest radiography.Uncommonly, a positive T-SPOT.TB result may be due toinfection with other Mycobacterium species includingM. kansasii, M. szulgai, M. gordonae, or M. marinum.Alternative tests would be required if these infectionsare suspected.The T-SPOT.TB test is qualitative and results arereported as positive, borderline, or negative, giventhat the test controls perform as expected. In linewith the Centers for Disease Control and Prevention's2010 recommendation to report quantitative measurementsalongside the qualitative result, the laboratoryprovides spot counts for informational purposes only.The T-SPOT.TB test should not be interpreted as aquantitative test. TS PANEL A 22 [facility] TS PANEL B 47 [facility] Negative Control Passed [facility] Positive Control Passed [facility] Comment:For additional infor mation, please refer tohttp://education.Earmark/faq/LYS737(This link is being provided for informational/educational purposes only.)THIS TEST WAS PERFORMED AT:[facility] [id number] [place] [address]LWIJLNLDELORIS GABRIEL MD,PHD 08/25/2025 2:47 PM EDT 08/25/2025 5:30 PM EDT us Vicenta Thrasher MD LAB BLOOD ORDERABLES Final Re sult [facility] [address] [place] [address] [phone] * Measles, Mumps, and Rubella (MMR) Antibodies??(IgG) Panel, Immune Status (08/25/2025 2:47 PM EDT) Mumps Virus IgG Antibody >300.00 AU/mL [facility] Comment:AU/mL Interpretation ------- <9.00 Not consistent with immunity9.00-10.99 Equivocal>10.99 Consistent with immunityThe presence of mumps IgG antibody suggests immunizationor past or current infection with mumps virus. Rubella IgG Antibody 16.10 Index [facility] Comment:Index Interpretation ----- <0.90 Not consistent with immunity 0.90-0.99 Equivocal > or = 1.00 Consistent with immunityThe presence of rubella IgG antibody suggestsimmunization or past or current infection withrubella virus.THIS TEST WAS PERFORMED AT:[facility] [address] [address]DZTSXMD Violeta FATIMA IgG (Measles) 155.00 AU/mL [facility] Comment:AU/mL Interpretation ----- <13.50 Not consistent with zitzvsmx78.50-16.49 Equivocal>16.49 Consistent with immunityThe presence of measles IgG suggests immunization orpast or current infection with measles virus.For additional information, please refer tohttp://[employer].GeoPoll/faq/OSZ621(This link is being provided for informational/educational purposes only.) Blood Venous blood specimen / Unknown 08/25/2025 2:47 PM EDT 08/25/2025 5:30 PM EDT Vicenta Thrasher MD LAB BLOOD ORDERABLES Final Re sult Performing Organization Address [facility] de Phone Number [facility] [address] [place] [phone] * Hepatitis B Surface Antibody, Qualitative (08/25/2025 2:47 PM EDT) ~Hepatitis B Surface Antibody GRAYZONE Nonreactive [facility] Comment:GRAYZONE: 8.00 mIU/m L TO 11.99 mIU/mLTHE IMMUNE STATUS OF THE INDIVIDUAL SHOULD BE FURTHERASSESSED BY CONSIDERING OTHER FACTORS, SUCH CLINICALSTATUS, FOLLOW-UP TESTING, ASSOCIATED RISK FACTORS, AND THEUSE OF ADDITIONAL DIAGNOSTIC INFORMATION. Blood Venous blood specimen / Unknown 08/25/2025 2:47 PM EDT 08/25/2025 5:30 PM EDT Vicenta Thrasher MD LAB BLOOD ORDERABLES Final Re sult Performing Organization Address [facility] Co de Phone Number [facility] [address] [place] [phone] * Varicella Zoster Antibody, IgG (08/25/2025 2:47 PM EDT) Varicella IgG Antibody 3.09 S/CO [facility] Comment:Signal to Cut-off S/ CO Interpretation --------- <1.00 Negative - Antibody not detected > or = 1.00 Positive - Antibody detected A positive result indicates that the patient has antibody to VZV but does not differentiate between an active or past infection. The clinical diagnosis must be interpreted in conjunction with the clinical signs and symptoms of the patient. This assay reliably measures immunity due to previous infection but may not be sensitive enough to detect antibodies induced by vaccination. Thus, a negative result in a vaccinated individual does not necessarily indicate susceptibility to VZV infection. A more sensitive test for vaccination-induced immunity is Varicella Zoster Virus Antibody Immunity Screen, ACIF.THIS TEST WAS PERFORMED AT:[employer] [place] [phone] CHEN MD Blood Venous blood specimen / Unknown 08/25/2025 2:47 PM EDT 08/25/2025 5:30 PM EDT us Vicenta Thrasher MD LAB BLOOD ORDERABLES Final Re sult [facility] [address] [place] [phone] * CTA Head Neck w/ and w/o Contrast (06/24/2025 11:27 AM EDT) Anatomical Region Laterality Modality Head, Neck Computed Tomogra phy 06/24/2025 11:2 7 AM EDT Narrative 06/24/2025 1:13 PM EDT [address] [address] [address] Scan Report Signed Patient: Jody Locke MR#: [id number] 664 : 1990 Acct:[id number] Age/Sex: 34 / F ADM Date: 06/24/25 Loc: .ED Attending Dr: Ordering Physician: Bora Sanchez Date of Service: 06/24/25 Procedure(s): CT angio head neck Accession Number(s): [id number] cc: Bora Sanchez; Vicenta Thrasher MD Report Number: [id number]: Total DLP = 1477.00 mGy-cm EXAMINATION: CT [...] vertex. The data was processed at the certified cytotechnologist's workstation for generation of MIP sequences. Angled [...] P1 segment. Normal opacification of the distal STATISTICAL SECRETARY segments. -LEFT POSTERIOR CEREBRAL ARTERY: Normal P1 segment. Normal opacification of the distal STATISTICAL SECRETARY segments. -POSTERIOR COMMUNICATING ARTERIES: The right is [...] 06/24/25 1310 DD/ 1127 TD/TT: 06/24/25 1249 Biscuitware Brusher: Procedure Note Donchristeninterpreter, Image - 06/24/[address] [address] [address] Scan Report Signed Patient: Anusha Locke#: [id number] 664 : 1990Acct:[id number] Age/Sex: 34 / FADM Date: 06/24/25 Loc: HO.ED Attending Dr: Ordering Physician: Bora Sanchez Date of Service: 06/24/25 Procedure(s): CT angio head neck Accession Number(s): [id number] cc: Bora Sanchez; Vicenta Thrasher MD Report Number: [id number]: Total DLP = 1477.00 mGy-cm EXAMINATION: CT [...] vertex. The data was processed at the certified cytotechnologist's workstation for generation of MIP sequences. Angled [...] P1 segment. Normal opacification of the distal STATISTICAL SECRETARY segments. -LEFT POSTERIOR CEREBRAL ARTERY: Normal P1 segment. Normal opacification of the distal STATISTICAL SECRETARY segments. -POSTERIOR COMMUNICATING ARTERIES: The right is [...] 06/24/25 1310 DD/ 1127 TD/TT: 06/24/25 1249 Biscuitware Brusher: [facility] External Provider IMG CT PROCEDURES Edited Result - Final * High Sensitivity Troponin I (06/24/2025 11:26 AM EDT) [facility] TROPONIN I HIGH SENSITIVITY <2.7 <3.5 - 17.0 ng/L [facility] Comment:The Gavin high sens itivity Troponin-I results should beused in conjunction with other diagnostic information suchas ECG, clinical observations and information, and patientsymptoms to aid in the diagnosis of IL. 06/24/2025 11:2 6 AM EDT 06/24/2025 11:32 AM EDT Generic External Data Provider LAB BLOOD ORDERAB LES Final Result [facility] [address] [place] [address] [phone] * (ABNORMAL) CBC auto differential (06/24/2025 11:26 AM EDT) [facility] White Blood Count 3.3(L) 4.8 - 10.8 X10*3/uL [facility] Red Blood Count 4.62 4.20 - 5.50 X10*6/uL [facility] Hemoglobin 14.1 12.0 - 16.0 g/dl [facility] Hematocrit 42.3 37.0 - 47.0 % [facility] Mean Corpuscular Volume 91.6 80.0 - 98.0 fL [facility] Mean Corpuscular Hemoglobin 30.5 27.0 - 33.0 pg [facility] Mean Corpuscular HGB Conc 33.3 31.0 - 35.0 g/dl [facility] Red Cell Distribution Width 12.8 11.0 - 16.0 % [facility] Platelet Count 144(L) 160 - 400 X10*3/uL [facility] Mean Platelet Volume 11.9 9.4 - 12.3 fL [facility] Neutrophils Percent Auto 48.9 45 - 73 % [facility] Imm Gran Pct Auto 0.0 0.0 - 0.4 % [facility] Lymphocytes Percent Auto 45.0(H) 20 - 40 % [facility] Monocytes Percent Auto 4.9 2 - 11 % [facility] Eosinophils Percent Auto 0.9 0 - 4 % [facility] Basophils Percent Auto 0.3 0 - 2 % [facility] NRBC Pct Auto 0.0 0.0 - 0.2 /100WBC [facility] Neutrophils Absolute Auto 1.6(L) 2.0 - 8.3 x10*3/uL [facility] Imm Gran Abs Auto 0.00 0.00 - 0.03 X10*3/uL [facility] Lymphocytes Absolute Auto 1.5 1.2 - 4.9 X10*3/uL [facility] Monocytes Absolute Auto 0.2 0.1 - 1.2 X10*3/uL [facility] Eosinophils Absolute Auto 0.0 0.0 - 0.4 X10*3/uL [facility] Basophils Absolute Auto 0.0 0.0 - 0.2 X10*3/uL [facility] NRBC Abs Auto 0.000 0.0 - 0.012 X10*3/uL [facility] 06/24/2025 11:2 6 AM EDT 06/24/2025 11:32 AM EDT us Generic External Data Provider LAB BLOOD ORDERAB LES Final Result Performing Organization Address [facility]/ZIP Co de Phone Number [facility] [address] [place] [address] [phone] * Urinalysis w/reflex microscopic (06/24/2025 11:26 AM EDT) Color Urine Yellow [facility] Appearance Urine Clear [facility] PH 6.0 5.0 - 9.0 [facility] Glucose Urine UA Negative Negative mg/dL [facility] Urine Blood Negative Negative [facility] Specific [place] - Urine 1.020 1.005 - 1.025 [facility] Urine Protein Negative Neg-Trace mg/dL [facility] Urine Ketones Negative Negative mg/dL [facility] Nitrite Urine Negative Negative [facility] Leukocyte Esterase Urine Negative Negative [facility] 06/24/2025 11:2 6 AM EDT 06/24/2025 11:32 AM EDT Narrative [facility] - 06/24/2025 11:37 AM EDT Urine, Clean Catch us Generic External Data Provider LAB URINE ORDERAB LES Final Result Performing Organization Address [facility] Co de Phone Number [facility] [address] [place] [phone] * (ABNORMAL) Partial Thromboplastin Time, Activated (APTT) (06/24/2025 11:26 AM EDT) Partial Thromboplastin Time 35.2(H) 26.7 - 34.1 SEC [facility] 06/24/2025 11:2 6 AM EDT 06/24/2025 11:32 AM EDT us Generic External Data Provider LAB BLOOD ORDERAB LES Final Result Performing Organization Address City/[facility]/ZIP Co de Phone Number [facility] [address] [place] [address] [phone] * Prothrombin Time-INR (06/24/2025 11:26 AM EDT) Prothrombin Time 11.3 10.9 - 12.4 SEC [facility] INTERNATIONAL NORM RATIO 1.0 0.9 - 1.1 [facility] Comment:INTERNATIONAL NORMAL IZED RATIO (INR) REFERENCE [...] [facility] Co de Phone Number [facility] [address] [place] [address] [phone] * hCG, Total, Quantitative (06/24/2025 11:26 AM EDT) HCG Quantitative <2 mIU/mL [facility] Comment:Weeks post LMP Appro ximate hCG(Last Menstrual Period) Range (mIU/ml)3 - 4 weeks 9 - 1304 - 5 weeks 75 - 2,6005 - 6 weeks 850 - 20,8006 - 7 weeks 4000 - 100,2007 - 12 weeks 11,500 - 289,35336 - 16 weeks 18,300 - 137,51311 - 29 weeks (2nd trimester) 1,400 - 53,11820 - 41 weeks (3rd trimester) 940 - [...] ORDERAB LES Final Result Performing Organization Address City/[facility]/ZIP Co de Phone Number [facility] [address] [place] [address] [phone] * Magnesium (06/24/2025 11:26 AM EDT) Magnesium 2.1 1.6 - 2.6 mg/dL [facility] 06/24/2025 11:2 6 AM EDT 06/24/2025 11:32 AM EDT Generic External Data Provider LAB BLOOD ORDERAB LES Final Result Performing Organization Address [facility] de Phone Number [facility] [address] [place] [phone] * (ABNORMAL) Basic Metabolic Panel (06/24/2025 11:26 AM EDT) Sodium 143 135 - 145 mmol/L [facility] Potassium 3.5 3.3 - 5.1 mmol/L [facility] Chloride 109(H) 96 - 108 mmol/L [facility] Carbon Dioxide 26 22 - 29 mmol/L [facility] Anion Gap 12 12 - 20 [facility] Urea Nitrogen (BUN) 10 9 - 16 mg/dL [facility] Creatinine, Serum 0.53 0.5 - 1.4 mg/dL [facility] Creatinine Clr Calc Pharmacy 153.9 [facility] Comment:Provided height and weight: 165 cm,78 kg.eGFR (calculated from the MDRD study equation) and eCrCl(calculated from the Cockcroft-Gault equation) are based ondifferent parameters and may not yield comparable results.If eCrCl result is absurd, please check patient'sheight/weight. Estimated Glomerular Filt Rate >60 [facility] Comment:Chronic Kidney Disea se: Estimated GFR < 60 mL/min/1.84o9Bnkeko Kidney Disease: Estimated GFR < 15 mL/min/1.73m2 Glucose 120(H) 60 - 115 mg/dL [facility] Calcium 8.9 8.4 - 10.2 mg/dL [facility] 06/24/2025 11:2 6 AM EDT 06/24/2025 11:32 AM EDT us Generic External Data Provider LAB BLOOD ORDERAB LES Final Result Performing Organization Address [facility] Co de Phone Number [facility] [address] [place] [address] [phone] * Hepatitis Panel, General (08/29/2023 12:39 PM EDT) Hepatitis A IgM Nonreactive Nonreactive [facility] Comment:IgM antibodies to HURT V not detected; does not exclude earlyacute or recovered HAV infection. ~Hepatitis B Surface Antibody NONREACTIVE Nonreactive [facility] Comment:Nonreactive: < 8.00 mIU/mL Hepatitis B Core Antibody Nonreactive Nonreactive [facility] Hepatitis C Antibody Nonreactive Nonreactive [facility] Comment:Antibodies to HCV no t detected; does not exclude early acuteHCV infection. Hepatitis B Surface Ag Negative Negative [facility] Blood 08/29/2023 12:3 9 PM EDT 08/29/2023 2:30 PM EDT us Vicenta Thrasher MD LAB BLOOD ORDERABLES Final Re sult Performing Organization Address [facility] Co de Phone Number [facility] [address] [place] [address] [phone] from Last 3 Months or Most Recently Relevant to Health Maintenance Insurance [facility] C3 Care Teams Import/Export Agent Relationship Specialty Start Date End Date Vicenta Thrasher MD [address] [place] [phone] PCP - General Internal Medicine 08/29/23 Alvina Fernández Credit Card Specialist 08/16/24
== END 2025-09-01 09:25 | disposition home or self-care (01) ==
LOC: HO.HHCX 09:24
PROVIDERS: PCP Pediatrics; Visit Provider Pediatrics
DX: Z00.00 Encounter for general adult medical examination without abnormal findings (principal); Z23 Encounter for immunization
CPT/HCPCS: 71046

== ENCOUNTER → 2025-09-01 09:34 | Outpatient (BNV) | payer MEDICAID, SELFPAY | PROVIDERS: PCP Pediatrics; Visit Provider Radiology Diagnostic Ultrasound | DX: Z23 Encounter for immunization (principal) | CPT/HCPCS: 71046 ==